=== PATIENT | male | born 1945 | race Caucasian/White ===

== ENCOUNTER 2022-04-24 06:04 | Inpatient (IN) ==
[2022-04-24 06:51] LABS: Basophils # (auto) 0.08 K/uL (0-0.2); Basophils % (auto) 0.7 %; Eosinophils # (auto) 0.01 K/uL (0-0.50); Eosinophils % (auto) 0.1 %; Hematocrit (blood only) 50.9 % (42.0-52.0); Hemoglobin 17.1 g/dl (14.0-18.0); Immature Granulocytes # (auto) 0.04 K/uL (0.01-0.20); Immature Granulocytes % (auto) 0.3 %; Lymphocytes # (auto) 1.59 K/uL (1.2-3.4); Lymphocytes % (auto) 13.6 %; Mean Corpuscular Hemoglobin 28.7 pg (25.0-34.0); Mean Corpuscular Hgb Conc 33.6 g/dL (32.0-36.0); Mean Corpuscular Volume 85.4 fL (80.0-100.0); Mean Platelet Volume 9.9 fL (9.4-12.4); Monocytes # (auto) 0.51 K/uL (0.11-0.59); Monocytes % (auto) 4.4 %; Neutrophils # (auto) 9.44 K/uL (1.40-6.50); Neutrophils % (auto) 80.9 %; Platelet Count 315 K/uL (130-400); RDW Coefficient of Variation 13.7 % (11.5-14.5); RDW Standard Deviation 42.4 fL (36.4-46.3); Red Blood Count 5.96 M/uL (4.70-6.10); White Blood Count 11.67 K/ul (4.8-10.8)
[2022-04-24 07:01] LABS: Albumin Globulin Ratio 1.2 (0.9-2); Albumin Level 4.2 gm/dl (3.4-5.0); Calcium 9.4 mg/dl (8.5-10.1); Creatinine Clr Calc Pharmacy 83.7 ml/min; Est GFR (African American) 84.4 ml/min; Est GFR (Non-African American) 72.8 ml/min; Globulin 3.6 gm/dl (2.5-4.0); Potassium 3.9 mmol/L (3.5-5.1); Total Protein 7.8 gm/dl (6.0-8.3)
[2022-04-24] MEDS ORDERED: FAMOTIDINE 20MG IV PUSH 20 MG/5 ML SYR IV STA (07:05)
[2022-04-24] MEDS ORDERED: ACETAMINOPHEN 1,000 MG/100 ML VIAL IV STA (07:05)
[2022-04-24] MEDS ORDERED: ONDANSETRON INJ 2 MG/ML 2 ML VIAL IV STA (07:05)
[2022-04-24] MEDS ORDERED: SODIUM CHLORIDE 0.9% 500 ML IV ONE (07:05)
[2022-04-24 07:08] LABS: Troponin I High Sensitivity 10.8 pg/ml (0-20)
--- NOTE | 2022-04-24 07:14 | XRay Report ---
XR chest 1V portable HISTORY: 76 years-old Male Chest pain, nonspecific acute right upper quadrant abdominal pain COMPARISON: None TECHNIQUE: AP view of the chest FINDINGS: Cardiac silhouette is upper limits of normal in size. No pneumothorax or overt pulmonary edema. Linea r left basilar opacities with small left pleural effusion. Bones appear grossly intact. IMPRESSION: Small left pleural effusion with mild left lung base opacities, favoring atelectasis. ACT 112: Negative or not required by law. The above report was generated using voice recognition software. It may contain grammatical, syntax o r spelling errors. Electronically signed by: Abdiaziz Carrasquillo M.D. 04/24/2022 7:13 AM
--- NOTE | 2022-04-24 07:37 | Emergency Department Note ---
Impression & Plan Acute epigastric pain, Cholelithiasis, Leukocytosis ED Provider Note NAME: PONCE CARRINGTON AGE: 76 SEX: M ARRIVES VIA: Walk-In INFORMANT: Patient ED PROVIDER(S): Rick Aguilar MD CHIEF COMPLAINT: Upper abdominal pain. PLAN: Disposition: admit MEDICAL DECISION MAKING: The patient is a pleasant 76-year-old gentleman with a past medical history who presents to the emergency department via walk-in accompanied by his son for evaluation of upper abdominal pain that radiates to his right shoulder. The patient reports a history of acid reflux but has never had a episode like this. He reports having ribs and scalloped potatoes yesterday for an early dinner and then had to redose in the evening. He reports his pain became severe at 11 PM last night and he has been unable to sleep due to the pain. He reports nausea but denies vomiting or diarrhea. He denies any fevers, cough, congestion. He did not take any medications for his pain. On arrival the patient is uncomfortable but no acute distress, afebrile with blood pressure 190/100s in the setting of his discomfort. He appears clinically dry. He has mild epigastric discomfort without discrete tenderness. There is a negative Don sign. EKG without overt acute ischemia. CXR negative for acute cardiopulmonary process. WBC 11.6K nonspecific. H/H and platelets within normal limits. Chemistry wit hout metabolic acidosis. Electrolytes and LFTs unremarkable. High-sensitivity troponin 10.8, within normal limits with delta 2-hour high-sensitivity troponin 9.7 essentially unchanged and within normal limits. Lipase within normal limits. Ultrasound of the gallbladder demonstrates gallstones with nonspecific gallbladder wall thickening without pericholecystic fluid or sonographic Dno sign. However, HIDA scan recommended to exclude cholecystitis if indicated. Upon reevaluation the patient reported some very brief improvement after IV fluid hydration, Pepcid, APAP, Zofran and Carafate. However he reports the pain recurred fairly quickly thereafter and is again a 10/10. He reports he is unable to function with this degree of pain as he cannot sleep. Given the persistence of his symptoms albeit with no significant tenderness we agreed to proceed with admission for further evaluation and HIDA scan given his ultrasound findings to evaluate for cholecystitis. Case was discussed with Zakiya Driscoll, [facility], with Dr. Melgar, [facility] hospitalist who will evaluate the patient for admission. Further management per admitting team Triage Nursing notes reviewed and agree them. Prior/outside medical records reviewed Vital Signs: reviewed Differential diagnosis: Cardiac ischemia, aortic dissection, pulmonary embolism, pneumothorax, pneumonia, pericarditis, myocarditis, esophageal rupture, GERD, cholecystitis, pancreatitis, musculoskeletal, as well as other pathologies. ER treatment provided: See below. Diagnostics interpreted by me: ECG: Normal sinus rhythm with sinus arrhythmia, 94 bpm, no ectopy, no overt ST e levation or depression, QTc 480, cures 88 Cardiac Monitoring: An order for continuous cardiac monitoring was placed and demonstrated Normal sinus rhythm with sinus arrhythmia, 94 bpm, no ectopy. Laboratory studies: See below Imaging studies: See below Consultation(s): Zakiya Driscoll, [facility], with Dr. Melgar HPI: The patient is a pleasant 76-year-old gentleman with a past medical history who presents to the emergency department via walk-in accompanied by his son for evaluation of upper abdominal pain that radiates to his right shoulder. The patient reports a history of acid reflux but has never had a episode like this. He reports having ribs and scalloped potatoes yesterday for an early dinner and then had to redose in the evening. He reports his pain became severe at 11 PM last night and he has been unable to sleep due to the pain. He reports nausea but denies vomiting or diarrhea. He denies any fevers, cough, congestion. He did not take any medications for his pain. ROS: See above HPI for pertinent positives & negatives. A total of 10 systems reviewed and were otherwise negative. VITALS:See Below PHYSICAL EXAMINATION: GENERAL: Awake, alert, uncomfortable-appearing, in no distress HENT: Normocephalic, atraumatic. Oropharynx with dry mucous membranes and ot herwise unremarkable. EYES: Normal conjunctiva. Sclera non-icteric. NECK: Supple. No nuchal rigidity. FROM. No JVD. RESPIRATORY: Clear to auscultation. CARDIAC: Regular rate, normal rhythm. Extremities warm and well perfused. Pulses equal. ABDOMEN: Soft, non-distended. Mild epigastric discomfort without discrete tenderness. Negative Don sign. No rebound or guarding. No masses. RECTAL: Deferred. MUSCULOSKELETAL: Chest examination reveals no tenderness. The back is symmetrical on inspection without obvious abnormality. There is no CVA tenderness to palpation. No joint edema. LOWER EXTREMITIES: Calves are equal size bilaterally and non-tender. No edema. No discoloration. NEURO: Normal sensorium. No sensory or motor deficits noted. SKIN: No rash or jaundice noted. Rick Aguilar MD Past Med/Surg History Medical History Diabetic neuropathy Duodenal ulcer per Epic chart but pt cannot recall Essential hypertension History of prostate cancer Treated surgically - no XRT or chemo Nephrolithiasis Type 2 diabetes mellitus Surgical History History of appendectomy History of cataract surgery History of robot-assisted laparoscopic radical prostatectomy History of tonsillectomy and adenoidectomy Hx of neck surgery related to an accident in a pool Family History Mother Heart disease Hypertension Social History Smoking Status: Former smoker Smoking End Date: >20 yrs ago; Hx Alcohol Use: Yes Alcohol type: beer Hx Substance Use: No Preferred Language: Latvian Delivery Rep Required: No Beliefs That Will Affect Care: None Current Living Situation: Spouse and Family Feels Safe at Home: Yes Assistive Devices: Denture - Upper and Denture - Lower Allergies Allergies Allergy/AdvReac Type Severity Reaction Status Date / Time unknown anesthetic agent AdvReac Nausea Uncoded 04/24/22 12:49 Home Meds Home Medications Medication Instructions Recorded Confirmed aspirin 81 mg tablet,delayed 162 mg PO DAILY 04/24/22 04/24/22 release lisinopril 10 1 tab PO DAILY 04/24/22 04/24/22 mg-hydrochlorothiazide 12.5 mg tablet metformin 500 mg tablet,extended 500 mg PO DAILY 04/24/22 04/24/22 release 24 hr metoprolol tartrate 50 mg tablet 50 mg PO BID 04/24/22 04/24/22 Results & Data (ED) Vital Signs Vital Signs - 24 hr 04/24/22 06:04 04/24/22 10:20 04/24/22 06:17 Temperature 36.6 C Temperature Source Oral Pulse Rate 93 H 89 93 H Pulse Rate from SpO2 Sensor 94 H Respiratory Rate 18 21 Respiratory Effort / Characteristics Non-Labored Respiratory Depth Normal Blood Pressure 198/101 H Blood Pressure Mean 133 Pulse Oximetry 95 94 Oxygen Delivery Method Room Air Sepsis Recent Fever Within 48 Hours No Sepsis New/Unexplained Change in Mental Status No Sepsis Action Taken by Nursing No Action Required 04/24/22 06:20 04/24/22 06:30 04/24/22 06:40 Temperature Temperature Source Pulse Rate 90 86 86 Pulse Rate from SpO2 Sensor 92 H 83 88 Respiratory Rate 23 19 16 Respiratory Effort / Characteristics Respiratory Depth Blood Pressure Blood Pressure Mean Pulse Oximetry 93 97 98 Oxygen Delivery Method Sepsis Recent Fever Within 48 Hours Sepsis New/Unexplained Change in Mental Status Sepsis Action Taken by Nursing 04/24/22 07:36 04/24/22 07:36 04/24/22 07:40 Temperature Temperature Source Pulse Rate 94 H 88 Pulse Rate from SpO2 Sensor Respiratory Rate 22 23 Respiratory Effort / Characteristics Respiratory Depth Blood Pressure 185/95 H Blood Pressure Mean 125 Pulse Oximetry Oxygen Delivery Method Sepsis Recent Fever Within 48 Hours Sepsis New/Unexplained Change in Mental Status Sepsis Action Taken by Nursing 04/24/22 07:50 04/24/22 08:00 04/24/22 08:10 Temperature Temperature Source Pulse Rate 94 H 82 91 H Pulse Rate from SpO2 Sensor Respiratory Rate 19 19 22 Respiratory Effort / Characteristics Respiratory Depth Blood Pressure Blood Pressure Mean Pulse Oximetry Oxygen Delivery Method Sepsis Recent Fever Within 48 Hours Sepsis New/Unexplained Change in Mental Status Sepsis Action Taken by Nursing 04/24/22 08:20 04/24/22 08:30 04/24/22 08:40 Temperature Temperature Source Pulse Rate 86 88 89 Pulse Rate from SpO2 Sensor Respiratory Rate 18 21 21 Respiratory Effort / Characteristics Respiratory Depth Blood Pressure Blood Pressure Mean Pulse Oximetry Oxygen Delivery Method Sepsis Recent Fever Within 48 Hours Sepsis New/Unexplained Change in Mental Status Sepsis Action Taken by Nursing 04/24/22 08:50 04/24/22 09:00 04/24/22 09:10 Temperature Temperature Source Pulse Rate 91 H 84 92 H Pulse Rate from SpO2 Sensor Respiratory Rate 23 12 Respiratory Effort / Characteristics Respiratory Depth Blood Pressure Blood Pressure Mean Pulse Oximetry Oxygen Delivery Method Sepsis Recent Fever Within 48 Hours Sepsis New/Unexplained Change in Mental Status Sepsis Action Taken by Nursing 04/24/22 09:20 04/24/22 09:30 04/24/22 09:40 Temperature Temperature Source Pulse Rate 87 86 85 Pulse Rate from SpO2 Sensor Respiratory Rate 14 14 16 Respiratory Effort / Characteristics Respiratory Depth Blood Pressure Blood Pressure Mean Pulse Oximetry Oxygen Delivery Method Sepsis Recent Fever Within 48 Hours Sepsis New/Unexplained Change in Mental Status Sepsis Action Taken by Nursing 04/24/22 09:50 04/24/22 10:00 04/24/22 10:10 Temperature Temperature Source Pulse Rate 87 87 92 H Pulse Rate from SpO2 Sensor Respiratory Rate 16 14 15 Respiratory Effort / Characteristics Respiratory Depth Blood Pressure Blood Pressure Mean Pulse Oximetry Oxygen Delivery Method Sepsis Recent Fever Within 48 Hours Sepsis New/Unexplained Change in Mental Status Sepsis Action Taken by Nursing 04/24/22 10:20 04/24/22 10:30 04/24/22 10:40 Temperature Temperature Source Pulse Rate 90 86 92 H Pulse Rate from SpO2 Sensor Respiratory Rate 21 20 30 H Respiratory Effort / Characteristics Respiratory Depth Blood Pressure Blood Pressure Mean Pulse Oximetry Oxygen Delivery Method Sepsis Recent Fever Within 48 Hours Sepsis New/Unexplained Change in Mental Status Sepsis Action Taken by Nursing 04/24/22 10:50 04/24/22 11:00 04/24/22 11:10 Temperature Temperature Source Pulse Rate 90 90 90 Pulse Rate from SpO2 Sensor Respiratory Rate 18 20 17 Respiratory Effort / Characteristics Respiratory Depth Blood Pressure Blood Pressure Mean Pulse Oximetry Oxygen Delivery Method Sepsis Recent Fever Within 48 Hours Sepsis New/Unexplained Change in Mental Status Sepsis Action Taken by Nursing 04/24/22 11:20 04/24/22 11:30 04/24/22 11:40 Temperature Temperature Source Pulse Rate 96 H 95 H 82 Pulse Rate from SpO2 Sensor Respiratory Rate 22 24 20 Respiratory Effort / Characteristics Respiratory Depth Blood Pressure Blood Pressure Mean Pulse Oximetry Oxygen Delivery Method Sepsis Recent Fever Within 48 Hours Sepsis New/Unexplained Change in Mental Status Sepsis Action Taken by Nursing 04/24/22 11:50 Temperature Temperature Source Pulse Rate 85 Pulse Rate from SpO2 Sensor Respiratory Rate 26 H Respiratory Effort / Characteristics Respiratory Depth Blood Pressure Blood Pressure Mean Pulse Oximetry Oxygen Delivery Method Sepsis Recent Fever Within 48 Hours Sepsis New/Unexplained Change in Mental Status Sepsis Action Taken by Nursing Laboratory Data 04/24/22 06:22 04/24/22 06:22 Lab Results 04/24/22 04/24/22 04/24/22 Range/Units 06:22 06:22 08:25 WBC 11.67 H (4.8-10.8) K/ul RBC 5.96 (4.70-6.10) M/uL Hgb 17.1 (14.0-18.0) g/dl Hct 50.9 (42.0-52.0) % MCV 85.4 (80.0-100.0) fL MCH 28.7 (25.0-34.0) pg MCHC 33.6 (32.0-36.0) g/dL RDW Std Deviation 42.4 (36.4-46.3) fL RDW Coeff of Maggie 13.7 (11.5-14.5) % Plt Count 315 (130-400) K/uL MPV 9.9 (9.4-12.4) fL Immature Gran % (Auto) 0.3 % Neut % (Auto) 80.9 % Lymph % (Auto) 13.6 % [place] % (Auto) 4.4 % Eos % (Auto) 0.1 % Baso % (Auto) 0.7 % Neut # (Auto) 9.44 H (1.40-6.50) K/uL Lymph # (Auto) 1.59 (1.2-3.4) K/uL [place] # (Auto) 0.51 (0.11-0.59) K/uL Eos # (Auto) 0.01 (0-0.50) K/uL Baso # (Auto) 0.08 (0-0.2) K/uL Immature Gran # (Auto) 0.04 (0.01-0.20) K/uL Sodium 138 (136-145) mmol/L Potassium 3.9 (3.5-5.1) mmol/L Chloride 98 (98-107) mmol/L Carbon Dioxide 31 (21-32) mmol/L Anion Gap 9 (3-11) BUN 20 (6-23) mg/dl Creatinine 1.00 (0.6-1.4) mg/dl Est Cr Clr Drug Dosing 83.7 ml/min Est GFR ( Amer) 84.4 ml/min Est GFR (Non-Af Amer) 72.8 ml/min BUN/Creatinine Ratio 20.0 (10-20) Glucose 160 H (70-99(Fasting)) mg/dl Calcium 9.4 (8.5-10.1) mg/dl Total Bilirubin 1.0 (0.2-1.0) mg/dl AST 29 (13-39) U/L ALT 24 (7-52) U/L Alkaline Phosphatase 88 (34-104) U/L Troponin I High Sens 10.8 9.7 (0-20) pg/ml Total Protein 7.8 (6.0-8.3) gm/dl Albumin 4.2 (3.4-5.0) gm/dl Globulin 3.6 (2.5-4.0) gm/dl Albumin/Globulin Ratio 1.2 (0.9-2) Lipase 18 (11-82) U/L SARS-CoV-2, RNA, NAAT (NEGATIVE) 04/24/22 Range/Units 11:35 WBC (4.8-10.8) K/ul RBC (4.70-6.10) M/uL Hgb (14.0-18.0) g/dl Hct (42.0-52.0) % MCV (80.0-100.0) fL MCH (25.0-34.0) pg MCHC (32.0-36.0) g/dL RDW Std Deviation (36.4-46.3) fL RDW Coeff of Maggie (11.5-14.5) % Plt Count (130-400) K/uL MPV (9.4-12.4) fL Immature Gran % (Auto) % Neut % (Auto) % Lymph % (Auto) % [place] % (Auto) % Eos % (Auto) % Baso % (Auto) % Neut # (Auto) (1.40-6.50) K/uL Lymph # (Auto) (1.2-3.4) K/uL [place] # (Auto) (0.11-0.59) K/uL Eos # (Auto) (0-0.50) K/uL Baso # (Auto) (0-0.2) K/uL Immature Gran # (Auto) (0.01-0.20) K/uL Sodium (136-145) mmol/L Potassium (3.5-5.1) mmol/L Chloride (98-107) mmol/L Carbon Dioxide (21-32) mmol/L Anion Gap (3-11) BUN (6-23) mg/dl Creatinine (0.6-1.4) mg/dl Est Cr Clr Drug Dosing ml/min Est GFR ( Amer) ml/min Est GFR (Non-Af Amer) ml/min BUN/Creatinine Ratio (10-20) Glucose (70-99(Fasting)) mg/dl Calcium (8.5-10.1) mg/dl Total Bilirubin (0.2-1.0) mg/dl AST (13-39) U/L ALT (7-52) U/L Alkaline Phosphatase (34-104) U/L Troponin I High Sens (0-20) pg/ml Total Protein (6.0-8.3) gm/dl Albumin (3.4-5.0) gm/dl Globulin (2.5-4.0) gm/dl Albumin/Globulin Ratio (0.9-2) Lipase (11-82) U/L SARS-CoV-2, RNA, NAAT NEGATIVE (NEGATIVE) Administered Medications Lisinopril/HCTZ (Lisinopril/Hctz 10/12.5mg Tab) 1 tab PO DAILY RHIANNA Stop: 05/24/22 11:59 Last Admin: 04/24/22 12:15 Dose: 1 tab Documented By: ABDIEL Sodium Chloride (Nss) 500 mls @ 100 mls/hr IV .Q5H RHIANNA Stop: 05/24/22 10:29 Last Admin: 04/24/22 16:33 Dose: 125 mls/hr Documented By: Infusion: 04/24/22 16:08 Dose: 0 mls/hr Documented By: Admin: 04/24/22 11:27 Dose: 125 mls/hr Documented By: ABDIEL Ciprofloxacin (Cipro / D5w) 400 mg in 200 mls @ 100 mls/hr IV Q12H RHIANNA; Pro tocol Stop: 05/04/22 15:29 Last Admin: 04/24/22 16:31 Dose: 100 mls/hr Documented By: LEVY Metronidazole (Flagyl) 500 mg in 100 mls @ 100 mls/hr IV Q8H RHIANNA Stop: 05/04/22 15:29 Last Infusion: 04/24/22 17:31 Dose: 0 mls/hr Documented By: Admin: 04/24/22 16:31 Dose: 100 mls/hr Documented By: LEVY Insulin Aspart (Insulin Aspart Per Unit) 0 units SC ACHS RHIANNA Stop: 05/24/22 16:29 Last Admin: 04/24/22 16:51 Dose: Not Given Documented By: LEVY Metoprolol Tartrate (Metoprolol Tartrate 50 Mg Tab) 50 mg PO BID RHIANNA Stop: 05/24/22 11:59 Last Admin: 04/24/22 12:15 Dose: 50 mg Documented By: ABDIEL Pantoprazole Sodium (Pantoprazole 40 Mg Tab) 40 mg PO BID RHIANNA Stop: 05/24/22 12:44 Last Admin: 04/24/22 13:18 Dose: 40 mg Documented By: ABDIEL Discontinued Medications Al Hydrox/Mg Hydrox/Simethicone (Gi Cocktail Ed Use) 1 dose PO ONE ONE Stop: 04/24/22 11:31 Last Admin: 04/24/22 11:30 Dose: 1 dose Documented By: ABDIEL Bupivacaine HCl/Epinephrine Bitart (Bupivacaine/Epinephrine 0.25% 1:200,000 30 Ml Vial) Confirm Administered Dose 30 ml .ROUTE .STK-MED ONE Stop: 04/24/22 16:39 Last Admin: 04/24/22 20:03 Dose: 30 ml Documented By: NAZ Sodium Chloride (Nss) 500 mls @ 999 mls/hr IV .Q31M ONE Stop: 04/24/22 07:35 Last Infusion: 04/24/22 08:12 Dose: 0 mls/hr Documented By: Admin: 04/24/22 07:37 Dose: 999 mls/hr Documented By: FLAQUITO Famotidine (Pepcid 20mg Iv Push) 20 mg in 5 mls @ 2.5 mls/min IV NOW STA Stop: 04/24/22 07:06 Last Admin: 04/24/22 07:39 Dose: 2.5 mls/min Documented By: FLAQUITO Acetaminophen (Ofirmev) 1,000 mg in 100 mls @ 400 mls/hr IV NOW STA Stop: 04/24/22 07:19 Last Infusion: 04/24/22 08:12 Dose: 0 mls/hr Documented By: Admin: 04/24/22 07:41 Dose: 400 mls/hr Documented By: FLAQUITO Ioversol (Optiray 350 100ml) 90 ml IV ONCE ONE Stop: 04/24/22 12:35 Last Admin: 04/24/22 12:34 Dose: 90 ml Documented By: JAR Miscellaneous ( Floseal Hemostatic Matrix 10ml) 10 ml TOP ONCE ONE Stop: 04/24/22 19:47 Last Admin: 04/24/22 19:53 Dose: 10 ml Documented By: NAZ Miscellaneous (Surgicel Absorb Hemostat 2in X 14in) 1 each TOP ONCE ONE Stop: 04/24/22 19:48 Last Admin: 04/24/22 19:51 Dose: 1 each Documented By: NAZ Morphine Sulfate (Morphine Sulfate 2 Mg/Ml Carp) 2 mg IV NOW STA Stop: 04/24/22 10:29 Last Admin: 04/24/22 11:27 Dose: 2 mg Documented By: [facility] Ondansetron HCl (Ondansetron Inj 2 Mg/Ml 2 Ml Vial) 4 mg IV NOW STA Stop: 04/24/22 07:06 Last Admin: 04/24/22 07:37 Dose: 4 mg Documented By: FLAQUITO Sucralfate (Sucralfate 1 Gm/10 Ml Udc) 1 gm PO NOW STA Stop: 04/24/22 08:25 Last Admin: 04/24/22 08:34 Dose: 1 gm Documented By: FLAQUITO Imaging Data Radiologist's Impression: Abdomen/Pelvis CT 04/24/22 11:22 CT OF THE ABDOMEN AND PELVIS WITH CONTRAST CLINICAL HISTORY: Epigastric/RUQ pain, nausea. COMPARISON STUDY: Right upper quadrant ultrasound performed earlier today. TECHNIQUE: Following IV administration of 90 mL of Optiray, axial images of the abdomen and pelvis were obtained from the lung bases to the proximal femurs. Images were reviewed in the axial, sagittal, and coronal planes. IV contrast was administered without complication. Automated exposure control was utilized for the study. A dose lowering technique was utilized adhering to the principles of ALARA. CT DOSE: 1732.60 mGy.cm FINDINGS: No pneumatosis, free air or portal gas is present. No hepatic lesions are present. There is possible hepatic steatosis. There is no biliary or pancreatic ductal dilatation. Moderate pericholecystic stranding is noted with trace associated fluid. Gallstones were noted on ultrasound performed earlier today. Gallbladder is slightly distended. Water attenuation bilateral renal lesions reflect cysts. There are are several right renal calculi which measure up to 5 mm. No ureteral calculi are present. There is no hydronephrosis. Colonic diverticulosis is present without evidence for acute diverticulitis. There is no evidence for a bowel obstruction. Appendix is not identified. There is no lymphadenopathy. There are no acute fractures or suspicious lesions within visualized skeletal structures. IMPRESSION: 1. Findings consistent with acute cholecystitis. 2. Colonic diverticulosis. No evidence for acute diverticulitis. 3. Right-sided nephrolithiasis. ACT 112: Negative or not required by law. Electronically signed by: Angel Colón M.D. 04/24/2022 1:09 PM Chest X-Ray 04/24/22 06:09 XR chest 1V portable HISTORY: 76 years-old Male Chest pain, nonspecific acute right upper quadrant abdominal pain COMPARISON: None TECHNIQUE: AP view of the chest FINDINGS: Cardiac silhouette is upper limits of normal in size. No pneumothorax or overt pulmonary edema. Linear left basilar opacities with small left pleural effusion. Bones appear grossly intact. IMPRESSION: Small left pleural effusion with mild left lung base opacities, favoring atelectasis. ACT 112: Negative or not required by law. The above report was generated using voice recognition software. It may contain grammatical, syntax or spelling errors. Electronically signed by: Abdiaziz Carrasquillo M.D. 04/24/2022 7:13 AM Gallbladder Ultrasound 04/24/22 06:21 ABDOMINAL ULTRASOUND, RIGHT UPPER QUADRANT HISTORY: Acute right upper quadrant abdominal pain ruq pain. COMPARISON: None. FINDINGS: With limited exam secondary to patient body habitus. Pancreas: The pancreas is mostly obscured by bowel gas. Liver: Increased echogenicity of the liver measuring up to 15.7 cm in length. Gallbladder: Layering cholelithiasis. Gallbladder wall is upper limits of normal at 3 mm. Possible adenomyomatosis of the gallbladder fundus. No pericholecystic fluid. Negative sonographic Don's sign. CBD: 0.5 cm Right kidney: 6 mm nonobstructing calculus of the superior pole right kidney. 5 cm cyst of the inferior pole right kidney. No hydronephrosis. IMPRESSION: 1. Cholelithiasis with mild nonspecific gallbladder wall thickening. No pericholecystic fluid identified and the sonographic Don sign was reported as negative. Correlation can be made with nuclear medicine hepatobiliary scan to exclude acute cholecystitis. 2. No biliary ductal dilation. 3. Right nephrolithiasis. ACT 112: Negative or not required by law. Electronically signed by: Abdiaziz Carrasquillo M.D. 04/24/2022 7:44 AM Abdomen/Pelvis CT 04/24/22 11:22 CT OF THE ABDOMEN AND PELVIS WITH CONTRAST CLINICAL HISTORY: Epigastric/RUQ pain, nausea. COMPARISON STUDY: Right upper quadrant ultrasound performed earlier today. TECHNIQUE: Following IV administration of 90 mL of Optiray, axial images of the abdomen and pelvis were obtained from the lung bases to the proximal femurs. Images were reviewed in the axial, sagittal, and coronal planes. IV contrast was administered without complication. Automated exposure control was utilized for the study. A dose lowering technique was utilized adhering to the principles of ALARA. CT DOSE: 1732.60 mGy.cm FINDINGS: No pneumatosis, free air or portal gas is present. No hepatic lesions are present. There is possible hepatic steatosis. There is no biliary or pancreatic ductal dilatation. Moderate pericholecystic stranding is noted with trace associated fluid. Gallstones were noted on ultrasound performed earlier today. Gallbladder is slightly distended. Water attenuation bilateral renal lesions reflect cysts. There are are several right renal calculi which measure up to 5 mm. No ureteral calculi are present. There is no hydronephrosis. Colonic diverticulosis is present without evidence for acute diverticulitis. There is no evidence for a bowel obstruction. Appendix is not identified. There is no lymphadenopathy. There are no acute fractures or suspicious lesions within visualized skeletal structures. IMPRESSION: 1. Findings consistent with acute cholecystitis. 2. Colonic diverticulosis. No evidence for acute diverticulitis. 3. Right-sided nephrolithiasis. ACT 112: Negative or not required by law. Electronically signed by: Angel Colón M.D. 04/24/2022 1:09 PM Discharge Plan Visit Data Chief Complaint: Chest Pain Stated Complaint: PAIN ACROSS CHEST ED Provider: Rick Aguilar Discharge Problem: Acute epigastric pain, Cholelithiasis, Leukocytosis Patient Disposition: Admitted As Inpatient Discharge Instructions Interventions: ED Discharge Assessment Last Done: 04/24/22 15:07 : Cholelithiasis Qualifiers: Cholelithiasis location: gallbladder Cholecystitis presence: with cholecystitis Cholecystitis acuity: acute Biliary obstruction: without biliary obstruction Qualified Code(s): K80.00 - Calculus of gallbladder with acute cholecystitis without obstruction
--- NOTE | 2022-04-24 07:46 | Ultrasound Report ---
ABDOMINAL ULTRASOUND, RIGHT UPPER QUADRANT HISTORY: Acute right upper quadrant abdominal pain ruq pain. COMPARISON: None. FINDINGS: With limited exam secondary to patient body habitus. Pancreas: The pancreas is mostly obscured by bowel gas. Liver: Increased echogenicity of the liver measuring up to 15.7 cm in length. Gallbladder: Layering cholelithiasis. Gallbladder wall is upper limits of normal at 3 mm. Possible ad enomyomatosis of the gallbladder fundus. No pericholecystic fluid. Negative sonographic Don's sign . CBD: 0.5 cm Right kidney: 6 mm nonobstructing calculus of the superior pole right kidney. 5 cm cyst of the inferi or pole right kidney. No hydronephrosis. IMPRESSION: 1. Cholelithiasis with mild nonspecific gallbladder wall thickening. No pericholecystic fluid identif ied and the sonographic Don sign was reported as negative. Correlation can be made with nuclear me dicine hepatobiliary scan to exclude acute cholecystitis. 2. No biliary ductal dilation. 3. Right nephrolithiasis. ACT 112: Negative or not required by law. Electronically signed by: Abdiaziz Carrasquillo M.D. 04/24/2022 7:44 AM
[2022-04-24] MEDS ORDERED: SUCRALFATE 1 GM/10 ML UDC PO STA (08:24)
[2022-04-24] MEDS ORDERED: MoRPHine SULFATE 2 MG/ML CARP IV STA (10:28)
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
[2022-04-24] MEDS ORDERED: ALUMINUM/MAGNESIUM SUSP 18 ML, LIDOCAINE VISCOUS 2% SOLN 6 ML, BARCODE IDENTIFIER 1 EACH PO ONE (11:22)
[2022-04-24] MEDS: SODIUM CHLORIDE 0.9% 500 ML IV SCH ×3 (11:27→22:17)
[2022-04-24] MEDS ORDERED: GI COCKTAIL ED USE PO ONE (11:30)
--- NOTE | 2022-04-24 12:13 | Communication Note ---
Date of Service: April 24, 2022 76-year-old man with history of hypertension and diabetes who presents with epigastric pain that started last night, severe, described as about to pop, not referred, associated with nausea. Denied any melena, hematochezia, fever, chills, diarrhea. Reports chronic urinary dribbling since his prostate cancer surgery. Exam notable for obese patient in no distress, epigastric tenderness. Labs is generally unremarkable. Abdominal ultrasound noted cholelithiasis and right nephrolithiasis. Epigastric pain. Reported mild improvement with sucralfate in ER. Outpatient records noted history of duodenal ulcer-though patient does not recall details. GI cocktail trial. PPI twice daily. Get the CT abdomen pelvis Other plans as detailed by Zakiya Driscoll
[2022-04-24] MEDS: METOPROLOL TARTRATE 50 MG TAB PO SCH ×2 (12:15→22:33)
[2022-04-24] MEDS: LISINOPRIL/HCTZ 10/12.5MG TAB PO SCH (12:15)
[2022-04-24] MEDS ORDERED: OPTIRAY 350 100ml IV ONE (12:34)
--- NOTE | 2022-04-24 13:11 | CT Scan Report ---
CT OF THE ABDOMEN AND PELVIS WITH CONTRAST CLINICAL HISTORY: Epigastric/RUQ pain, nausea. COMPARISON STUDY: Right upper quadrant ultrasound performed earlier today. TECHNIQUE: Following IV administration of 90 mL of Optiray, axial images of the abdomen and pelvis we re obtained from the lung bases to the proximal femurs. Images were reviewed in the axial, sagittal, and coronal planes. IV contrast was administered without complication. Automated exposure control wa s utilized for the study. A dose lowering technique was utilized adhering to the principles of ALARA . CT DOSE: 1732.60 mGy.cm FINDINGS: No pneumatosis, free air or portal gas is present. No hepatic lesions are present. There is possible hepatic steatosis. There is no biliary or pancreatic ductal dilatation. Moderate pericholec ystic stranding is noted with trace associated fluid. Gallstones were noted on ultrasound performed e arlier today. Gallbladder is slightly distended. Water attenuation bilateral renal lesions reflect cy sts. There are are several right renal calculi which measure up to 5 mm. No ureteral calculi are pres ent. There is no hydronephrosis. Colonic diverticulosis is present without evidence for acute diverti culitis. There is no evidence for a bowel obstruction. Appendix is not identified. There is no lympha denopathy. There are no acute fractures or suspicious lesions within visualized skeletal structures. IMPRESSION: 1. Findings consistent with acute cholecystitis. 2. Colonic diverticulosis. No evidence for acute diverticulitis. 3. Right-sided nephrolithiasis. ACT 112: Negative or not required by law. Electronically signed by: Angel Colón M.D. 04/24/2022 1:09 PM
[2022-04-24] MEDS: PANTOprazole 40 MG TAB PO SCH ×2 (13:18→22:33)
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
[2022-04-24] MEDS ORDERED: GLUCOSE 40% GEL 15 GM TUBE PO PRN (15:15)
[2022-04-24] MEDS ORDERED: CARBOHYDRATES FOR HYPOGLYCEMIA PO PRN (15:15)
[2022-04-24] MEDS ORDERED: GLUCAGON FOR INJ 1 MG VIAL SQ PRN (15:15)
[2022-04-24] MEDS ORDERED: DEXTROSE 50% 50 ML SYRINGE IV PRN (15:15)
[2022-04-24] MEDS ORDERED: GLUCOSE 10 TAB/TUBE PO PRN (15:15)
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
[2022-04-24] MEDS: metroNIDAZOLE 500 MG/100 ML BAG IV SCH ×2 (16:31→23:46)
[2022-04-24] MEDS: CIPROFLOXACIN / D5W 400 MG/200 ML BAG IV SCH (16:31)
[2022-04-24] MEDS ORDERED: BUPIVACAINE/EPINEPHRINE 0.25% 1:200,000 30 ML VIAL ONE (16:38)
[2022-04-24] MEDS ORDERED: GLYCOPYRROLATE 0.2 MG/ML VIAL ONE (16:40)
[2022-04-24] MEDS ORDERED: MIDAZOLAM HCL 1 MG/ML 2ML VIAL ONE (16:40)
[2022-04-24] MEDS ORDERED: NEOSTIGMINE METHYLSULFATE 1 MG/ML 10ML VIAL ONE (16:40)
[2022-04-24] MEDS ORDERED: fentaNYL citrate 100 MCG/2 ML VIAL ONE ×2 (16:40→19:39)
[2022-04-24] MEDS ORDERED: PROPOFOL IV EMULSION 10 MG/ML 20 ML VIAL IV ONE (16:40)
[2022-04-24] MEDS ORDERED: ONDANSETRON INJ 2 MG/ML 2 ML VIAL ONE ×2 (16:40→21:22)
[2022-04-24] MEDS ORDERED: DEXAMETHASONE SOD INJ 4 MG/ML VIAL ONE (16:40)
[2022-04-24] MEDS ORDERED: LIDOCAINE 2% MPF LOCAL 5 ML VIAL INFIL ONE (16:41)
[2022-04-24] MEDS ORDERED: ROCURONIUM BROMIDE 10 MG/ML 5 ML VIAL IV ONE ×2 (16:41→19:58)
[2022-04-24] MEDS: INSULIN ASPART PER UNIT SC SCH ×2 (16:51→22:35)
[2022-04-24] MEDS ORDERED: HYDROmorphone INJ 2 MG/ML SYR/VIAL IV PRN (17:31)
[2022-04-24] MEDS ORDERED: ONDANSETRON INJ 2 MG/ML 2 ML VIAL IV PRN (17:31)
[2022-04-24] MEDS ORDERED: ePHEDrine sulfate 50 MG/ML AMP IV PRN (17:31)
[2022-04-24] MEDS ORDERED: ATROPINE SULFATE 0.1 MG/ML 10ML SYR IV PRN (17:31)
[2022-04-24] MEDS ORDERED: fentaNYL citrate 100 MCG/2 ML VIAL IV PRN (17:31)
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
[2022-04-24] MEDS ORDERED: ALBUMIN HUMAN 5% 12.5 GM/250 ML VIAL IV ONE (18:48)
[2022-04-24] MEDS ORDERED: PHENYLEPHRINE HCL 10 MG/ML VIAL ONE (18:52)
[2022-04-24] MEDS ORDERED: ePHEDrine sulfate 50 MG/ML AMP ONE (18:54)
[2022-04-24] MEDS ORDERED: VASOPRESSIN 20 UNIT/ML VIAL ONE (18:54)
[2022-04-24] MEDS ORDERED: ACETAMINOPHEN 1000 MG/100 ML IV IV ONE (19:19)
[2022-04-24] MEDS ORDERED: FLOSEAL HEMOSTATIC MATRIX 10ML TOP ONE (19:46)
[2022-04-24] MEDS ORDERED: SURGICEL ABSORB HEMOSTAT 2IN X 14IN TOP ONE (19:47)
[2022-04-24] MEDS ORDERED: SUGAMMADEX SODIUM 200 MG/2 ML VIAL IV ONE ×3 (19:58→20:42)
--- NOTE | 2022-04-24 20:18 | Post Operative Brief Note ---
Immediate Post Op Note v1 Date of Surgery April 24, 2022 Pre & Post Diagnosis Operation Date: 04/24/22 12:00 Pre-Op Diagnosis: Acute cholecystitis Post-Op Diagnosis: Acute cholecystitis I identified the patient and participated in the time-out.: Yes Procedure Operation Date: 04/24/22 12:00 Actual Procedures p Laparoscopic Cholecystectomy(Not Applicable) - James Jamison MD Surgeon James Jamison MD It Portfolio Manager none Estimated Blood Loss 20 Findings Consistent with Post-Op Diagnosis Severe acute cholecystitis Drains Hemovac Drain (19fr)
--- NOTE | 2022-04-24 20:23 | Operative Report ---
Post Operative Report Pre & Post Diagnosis Operation Date: 04/24/22 12:00 Pre-Op Diagnosis: Acute cholecystitis Post-Op Diagnosis: Acute cholecystitis I identified the patient and participated in the time-out.: Yes Procedure Operation Date: 04/24/22 12:00 Actual Procedures p Laparoscopic Cholecystectomy(Not Applicable) - James Jamison MD Surgeon James Jamison MD Credit And Loan Collections Supervisor none Estimated Blood Loss 20 Findings Consistent with Post-Op Diagnosis Severe acute cholecystitis. Large number of stones in the gallbladder. Due to the severe acute cholecystitis as well as the patient's body habitus, the surgery took over twice as long as normal, warranting the 22 modifier to be used in this situation. Specimens Gallbladder Drains 19 Ukrainian round MACHELLE Anesthesia Type General Complications No immediate complications Description of Procedure The patient was taken to the operating room, and placed supine on the operating table. A timeout was performed, perioperative antibiotics were administered, SCD boots were placed. After adequate anesthesia and analgesia was obtained, the abdomen was prepped and draped in the normal sterile fashion. Local anesthetic was injected into and around the proposed incision sites. An incision was made with a 15 blade scalpel in the supraumbilical region and carried down to the level of the fascia. The fascia was grasped with a trach hook, and a varies needle was used to enter the abdominal cavity. The abdomen was insufflated to a pressure of 15 mmHg, and a 11 mm trocar was placed in this location. A 10 mm, 30 degree laparoscope was placed into the abdominal cavity, and the abdomen was surveyed. The omentum was firmly attached to the gallbladder and above the liver. Due to body habitus, it was incredibly difficult to retract the omentum. Two 5 mm trochars were placed along the right costal margin, and one 5 mm trocar was placed in the subxiphoid region under direct visualization. An extra 5 mm trocar was placed in the midline 40 retractor, and the subxiphoid port was ultimately upsized to an 11 mm trocar. The gallbladder was drained of bile with an 18-gauge aspiration needle. It was then grasped and retracted cephalad and laterally, and I began to slowly work down towards the triangle of Calot, dissecting with the hook cautery as well as the suction seismic computer tip. Down at the end of the gallbladder, it was noted that there was a large stone or stones stuck near the cystic duct. There was severe inflammation in this area, and the common bile duct could be seen coursing up to the gallbladder. It appeared that the cystic duct was incredibly short. The decision was made to proceed with a subtotal cholecystectomy. The harmonic scalpel was used to open the gallbladder just above the level of the cystic duct. Large number of stones were identified in this location were suctioned free. The cystic artery was identified and clipped. Using the harmonic scalpel I was able to remove the gallbladder from the gallbladder fossa. It was placed in an Endo Catch bag, and removed via the supraumbilical port site, which had to be significantly enlarged to allow passage of the gallbladder with all the stones. The stones that had been spilled were suctioned free. Attention was turned hemostasis, which was noted to be excellent. Surgicel and Floseal was used to aid with hemostasis on the liver bed. A 19 Ukrainian round MACHELLE drain was placed through the lateral incision and was maneuvered into the gallbladder fossa down by the area of the transected cystic duct/remnant rim of gallbladder. This was secured with a nylon suture. All trochars were removed under direct visualization. The abdomen was desufflated. The fascia in the 11 mm port site was closed with a 0 Vicryl suture. The skin was closed with a running 4-0 Monocryl subcuticular stitch. Dermabond was applied. The patient tolerated the procedure without complication, and was transferred in stable condition to the PACU. All instrument, needle, and sponge counts were correct at the end of the case. I attest to the content of the Intraoperative Record and any orders documented therein. Any exceptions are noted below.
--- NOTE | 2022-04-24 21:32 | Anesthesiology Progress Note ---
Date of Service April 24, 2022 Anesthesia Post Procedure Vital Signs Vital Signs: Temp Pulse Pulse Pulse Resp BP BP 04/24/22 21:30 36.6 C 84 24 147/67 H 04/24/22 21:20 36.6 C 86 24 135/86 04/24/22 21:10 36.6 C 88 25 H 146/72 H 04/24/22 21:00 90 22 145/68 H 04/24/22 20:50 90 24 150/70 H 04/24/22 20:40 37.2 C 96 H 12 152/93 H 04/24/22 16:53 37.4 C 94 H 20 161/94 H 04/24/22 15:56 36.8 C 88 160/85 H 04/24/22 15:44 04/24/22 14:40 26 H 04/24/22 14:30 18 04/24/22 14:20 82 16 04/24/22 14:10 83 30 H 04/24/22 14:00 85 19 04/24/22 13:50 85 17 04/24/22 13:40 83 20 04/24/22 13:30 84 19 04/24/22 13:20 83 18 04/24/22 13:10 82 25 H 04/24/22 13:00 92 H 15 04/24/22 12:50 88 12 04/24/22 12:40 87 13 04/24/22 12:35 100 H 9 L 04/24/22 12:20 80 21 04/24/22 12:10 82 14 04/24/22 12:00 84 18 04/24/22 11:50 85 26 H 04/24/22 11:40 82 20 04/24/22 11:30 95 H 24 04/24/22 11:20 96 H 22 04/24/22 11:10 90 17 04/24/22 11:00 90 20 04/24/22 10:50 90 18 04/24/22 10:40 92 H 30 H 04/24/22 10:30 86 20 04/24/22 10:20 90 21 04/24/22 10:10 92 H 15 04/24/22 10:00 87 14 04/24/22 09:50 87 16 04/24/22 09:40 85 16 04/24/22 09:30 86 14 04/24/22 09:20 87 14 02/13/23 09:10 92 H 12 04/24/22 09:00 84 04/24/22 08:50 91 H 23 04/24/22 08:40 89 21 04/24/22 08:30 88 21 04/24/22 08:20 86 18 04/24/22 08:10 91 H 22 04/24/22 08:00 82 19 04/24/22 07:50 94 H 19 04/24/22 07:40 88 23 04/24/22 07:36 94 H 22 04/24/22 07:36 185/95 H 04/24/22 06:40 86 16 04/24/22 06:30 86 19 04/24/22 06:20 90 23 04/24/22 06:17 93 H 21 04/24/22 10:20 89 04/24/22 06:04 36.6 C 93 H 18 198/101 H Pulse Ox O2 Del Method O2 Flow Rate 04/24/22 21:30 94 Oxymask 5 04/24/22 21:20 93 Oxymask 5 04/24/22 21:10 95 Oxymask 5 04/24/22 21:00 92 Oxymask 10 04/24/22 20:50 92 Oxymask 10 04/24/22 20:40 95 Oxymask 10 04/24/22 16:53 100 Room Air 04/24/22 15:56 95 Nasal Cannula 2 04/24/22 15:44 Nasal Cannula 2 04/24/22 14:40 04/24/22 14:30 04/24/22 14:20 04/24/22 14:10 04/24/22 14:00 04/24/22 13:50 04/24/22 13:40 04/24/22 13:30 04/24/22 13:20 04/24/22 13:10 04/24/22 13:00 04/24/22 12:50 04/24/22 12:40 04/24/22 12:35 04/24/22 12:20 04/24/22 12:10 04/24/22 12:00 04/24/22 11:50 04/24/22 11:40 04/24/22 11:30 04/24/22 11:20 04/24/22 11:10 04/24/22 11:00 04/24/22 10:50 04/24/22 10:40 04/24/22 10:30 04/24/22 10:20 04/24/22 10:10 04/24/22 10:00 04/24/22 09:50 04/24/22 09:40 04/24/22 09:30 04/24/22 09:20 04/24/22 09:10 04/24/22 09:00 04/24/22 08:50 04/24/22 08:40 04/24/22 08:30 04/24/22 08:20 04/24/22 08:10 04/24/22 08:00 04/24/22 07:50 04/24/22 07:40 04/24/22 07:36 04/24/22 07:36 04/24/22 06:40 98 04/24/22 06:30 97 04/24/22 06:20 93 04/24/22 06:17 94 04/24/22 10:20 04/24/22 06:04 95 Room Air Pain Intensity Abdomen: Pain Intensity: 8 Transfer of Care Handoff Completed per policy Notes Mental Status: alert / awake / arousable and participated in evaluation Patient Amnestic to Procedure: Yes Nausea / Vomiting: adequately controlled Pain: adequately controlled Airway Patency, RR, SpO2: stable & adequate BP & HR: stable & adequate Hydration State: stable & adequate Anesthetic Complications: no major complications apparent and Pt Satisfied with anesthetic care
[2022-04-24] MEDS ORDERED: diphenhydrAMINE Capsule 25 MG CAP PO PRN (21:59)
[2022-04-24] MEDS ORDERED: MoRPHine SULFATE 2 MG/ML CARP IV PRN (21:59)
[2022-04-24] MEDS ORDERED: PROMETHAZINE HCL 12.5 MG in SODIUM CHLORIDE 0.9% 50 ML IV PRN (21:59)
[2022-04-24] MEDS ORDERED: oxyCODONE/ACETAMINOPHEN 5mg/325mg TAB PO PRN (21:59)
[2022-04-25] MEDS ORDERED: Nursing to Pharmacy Communication SCH (00:15)
[2022-04-25] MEDS: SODIUM CHLORIDE 0.9% 500 ML IV SCH (00:29)
[2022-04-25] MEDS: CIPROFLOXACIN / D5W 400 MG/200 ML BAG IV SCH ×2 (04:00→14:24)
[2022-04-25] MEDS: SODIUM CHLORIDE 0.9% 1000ML 1,000 ML IV SCH ×2 (04:56→15:02)
--- NOTE | 2022-04-25 06:03 | Electrocardiogram Report ---
Test Reason : Blood Pressure : / mmHG Vent. Rate : 094 BPM Atrial Rate : 094 BPM P-R Int : 192 ms QRS Dur : 088 ms QT Int : 384 ms P-R-T Axes : 065 063 073 degrees QTc Int : 480 ms Normal sinus rhythm Premature atrial complexes Possible Left atrial enlargement Low voltage QRS Prolonged QT Abnormal ECG No previous ECGs available Confirmed by Eldon Good ([id number]) on 04/25/2022 6:02:49 AM Referred By: Confirmed By:Eldon Good
[2022-04-25] MEDS: metroNIDAZOLE 500 MG/100 ML BAG IV SCH ×3 (07:24→23:43)
--- NOTE | 2022-04-25 07:32 | Gastroenterology Progress Note ---
Date of Service April 25, 2022 Assessment & Plan (1) Acute epigastric pain: Plan: Nearly resolved w cholecystectomy. No clinical evidence of ulcer dx (No gastric/duodenal abnormalities on CT, normal Hb/Hct and pt's pain significantly improved w cholecystectomy) Plan Offered and encouraged an OP EGD/Colonoscopy - declines. Diet, activity per surgery. Please consider laxatives as pt is a little bloated , not passing gas, so likely a mild ileus. GI will sign off. Please recall if needed. Admission and Anticipated Discharge Date Admission Date: April 24, 2022 Subjective 76, male presented yesterday for epigastric pain, imaging consistent w cholecystitis w/o evidence of bile duct abnormalities. LFTs normal. Pt underwent cholecystectomy yesterday and tells me he feels much better. Sitting on the side of the bed. A little bloating, not passing gas or BMs yet, minimal pain. Reports hx of duodenal ulcer, but also tells me he never underwent EGD, colonoscopy and does not want to do these. Review of Systems Review of Systems: ROS: Gen: Denies weakness, fevers, weight loss Eyes: No eye redness, or pain, no recent vision changes Resp: No SOB, no cough Cardio: No palpitations/irregular beats, no chest pain GI: As per HPI : Denies pain on urination Skin: No jaundice, itching or new rashes Physical Exam Constitutional: WD/WN, vitals as above Eyes: PERRL, conjunctivae normal, anicteric sclerae ENMT: external ear and nose normal, oropharynx normal Respiratory: normal respiratory effort, lungs clear to auscultation Cardiovascular: RRR, no murmur, no edema Gastrointestinal (Abdomen): Moderate distention, not taunt, mild diffuse discomfort on palpation mostly near the lap incisions (dressings in place, dry). Skin: no rashes, warm and dry Neurologic: PERRL, EOMI, accommodation nl, no face palsy, no dysarthria Psychiatric: A+Ox3, euthymic affect Lymphatic: no cervical or axillary lymphadenopathy Results & Data ([facility]) Vital Signs (Past 12 Hours) Vital Signs Temp Pulse Pulse Resp BP Pulse Ox O2 Del Method 04/25/22 07:04 71 23 115/67 94 Nasal Cannula 04/25/22 03:05 36.4 C L 75 18 119/70 96 Nasal Cannula 04/24/22 22:09 78 04/24/22 23:48 36.6 C 80 16 141/75 H 97 Oxymask 04/24/22 23:09 Oxymask 04/24/22 22:30 36.6 C 80 16 95/66 L 97 Oxymask 04/24/22 22:04 36.2 C L 80 18 130/63 94 Oxymask 04/24/22 21:40 84 25 H 134/66 95 Oxymask 04/24/22 21:30 36.6 C 84 24 147/67 H 94 Oxymask 04/24/22 21:20 36.6 C 86 24 135/86 93 Oxymask 04/24/22 21:10 36.6 C 88 25 H 146/72 H 95 Oxymask 04/24/22 21:00 90 22 145/68 H 92 Oxymask 04/24/22 20:50 90 24 150/70 H 92 Oxymask 04/24/22 20:40 37.2 C 96 H 12 152/93 H 95 Oxymask O2 Flow Rate 04/25/22 07:04 2 04/25/22 03:05 3 04/24/22 22:09 04/24/22 23:48 4 04/24/22 23:09 4 04/24/22 22:30 4 04/24/22 22:04 4 04/24/22 21:40 5 04/24/22 21:30 5 04/24/22 21:20 5 04/24/22 21:10 5 04/24/22 21:00 10 04/24/22 20:50 10 04/24/22 20:40 10 Laboratory Results LFTs, lipase yesterday normal. WBC yesterday 11. BS this morning 120. Diagnostic Findings Imaging (prior to surgery): CTAP 04/24: 1. Findings consistent with acute cholecystitis. 2. Colonic diverticulosis. No evidence for acute diverticulitis. 3. Right-sided nephrolithiasis. US 04/24/22: 1. Cholelithiasis with mild nonspecific gallbladder wall thickening. No pericholecystic fluid identified and the sonographic Don sign was reported as negative. Correlation can be made with nuclear medicine hepatobiliary scan to exclude acute cholecystitis. 2. No biliary ductal dilation. 3. Right nephrolithiasis.
[2022-04-25] MEDS: METOPROLOL TARTRATE 50 MG TAB PO SCH ×2 (08:11→21:01)
[2022-04-25] MEDS: PANTOprazole 40 MG TAB PO SCH ×2 (08:11→20:56)
[2022-04-25] MEDS: FAMOTIDINE 40 MG TABLET PO SCH (08:11)
[2022-04-25] MEDS: LISINOPRIL/HCTZ 10/12.5MG TAB PO SCH (08:12)
[2022-04-25] MEDS: INSULIN ASPART PER UNIT SC SCH ×4 (08:18→20:55)
[2022-04-25 09:21] LABS: Estimated Average Glucose 146 mg/dl; Hemoglobin A1C 6.7 % (4.5-5.6)
[2022-04-25 09:51] LABS: Albumin Globulin Ratio 1.3 (0.9-2); Albumin Level 3.4 gm/dl (3.4-5.0); BUN Creatinine Ratio 16.3 (10-20); Bilirubin,Total 1.2 mg/dl (0.2-1.0); Calcium 8.1 mg/dl (8.5-10.1); Creatinine Clr Calc Pharmacy 80.7 ml/min; Est GFR (African American) 80.5 ml/min; Est GFR (Non-African American) 69.4 ml/min; Globulin 2.7 gm/dl (2.5-4.0); Potassium 3.8 mmol/L (3.5-5.1); Total Protein 6.1 gm/dl (6.0-8.3)
[2022-04-25 10:14] LABS: Basophils # (auto) 0.05 K/uL (0-0.2); Basophils % (auto) 0.5 %; Eosinophils # (auto) 0.03 K/uL (0-0.50); Eosinophils % (auto) 0.3 %; Hematocrit (blood only) 41.7 % (42.0-52.0); Hemoglobin 13.9 g/dl (14.0-18.0); Immature Granulocytes # (auto) 0.03 K/uL (0.01-0.20); Immature Granulocytes % (auto) 0.3 %; Lymphocytes # (auto) 1.19 K/uL (1.2-3.4); Lymphocytes % (auto) 11.1 %; Mean Corpuscular Hemoglobin 29.2 pg (25.0-34.0); Mean Corpuscular Hgb Conc 33.3 g/dL (32.0-36.0); Mean Corpuscular Volume 87.6 fL (80.0-100.0); Monocytes # (auto) 0.91 K/uL (0.11-0.59); Monocytes % (auto) 8.5 %; Neutrophils # (auto) 8.53 K/uL (1.40-6.50); Neutrophils % (auto) 79.3 %; Platelet Count 227 K/uL (130-400); RDW Coefficient of Variation 14.3 % (11.5-14.5); RDW Standard Deviation 45.6 fL (36.4-46.3); Red Blood Count 4.76 M/uL (4.70-6.10); White Blood Count 10.74 K/ul (4.8-10.8)
--- NOTE | 2022-04-25 10:52 | Communication Note ---
Date of Service: April 25, 2022 We were asked to provide ERCP to prevent a bile leak on this pt who underwent a cholecystectomy yesterday. Discussed w Dr. Askew, Dr. Jamison, Dr. Winchester. Plan for ERCP tomorrow by Dr. Winchester around 3:15. Order for ERCP placed. OR and Endo aware. NPO after midnight. Today's diet per surgery.
[2022-04-25] MEDS ORDERED: ACETAMINOPHEN 1,000 MG/100 ML VIAL IV SCH (12:00)
[2022-04-25] MEDS ORDERED: oxyCODONE HCL IR 5 MG TAB (IMMEDIATE RELEASE) PO PRN (12:03)
--- NOTE | 2022-04-25 12:04 | Surgery Progress Note ---
Date of Service April 25, 2022 Assessment & Plan (1) Acute cholecystitis: Plan: POD # 1 s/p laparoscopic subtotal fenestrated cholecystectomy -afebrile, vss - moderate postop pain, at times controlled - kacy drain with bloody output - t. bili 1.2 - lethargic and sleepy today Plan: Will schedule IV Tylenol q 8 hours. Continue PO Oxycodone and IV morhpine prn pain Continue clear liquid diet for now continue kacy drain to bulb suction GI planning for ERCP with stent placement tomorrow NPO after midnight Continue IV Abx OOB to chair, ambulate with assistance PT/OT SCDs and lovenox for dvt prophylaxis repeat am labs continue medical management Discussed with Dr. glass who agrees with above. Admission and Anticipated Discharge Date Admission Date: April 24, 2022 Subjective feeling very tired, cannot get comfortable no chest pain or shortness of breath abdomen feels very bloated not passing any gas moderate to severe pain at times, sometimes controlled other times not. More pain with movement no n,v Physical Exam Constitutional: WD/WN, vitals as above cooperative and + lethargic; no acute distress and not ill appearing Neck: normal visual inspection and trachea midline Respiratory: normal respiratory effort; no respiratory distress, no labored breathing and no retractions oxygen via nasal cannula Gastrointestinal (Abdomen): Inspection/Auscultation: + abdomen distended, + abdominal surgical incision (clean/dry/intact with dermabond), + abdominal surgical drain present (bloody output) and + hypoactive bowel sounds; + abnormal bowel sounds Percussion/Palpation: + abdomen tender (generalized tenderness) and abdomen soft; no guarding and abdomen not rigid Skin: no rashes, warm and dry no jaundice Psychiatric: Orientation: alert and oriented x 3 Results & Data ([facility]) Vital Signs (Past 12 Hours) Vital Signs Temp Pulse Pulse Resp BP Pulse Ox O2 Del Method 04/25/22 11:34 36.7 C 72 18 116/71 95 Nasal Cannula 04/25/22 07:30 72 04/25/22 07:30 Nasal Cannula 04/25/22 07:04 71 23 115/67 94 Nasal Cannula 04/25/22 03:05 36.4 C L 75 18 119/70 96 Nasal Cannula O2 Flow Rate 04/25/22 11:34 1 04/25/22 07:30 04/25/22 07:30 2 04/25/22 07:04 2 04/25/22 03:05 3 Laboratory Results 04/25/22 04/25/22 04/25/22 Range/Units 11:07 09:07 09:07 WBC 10.74 (4.8-10.8) K/ul RBC 4.76 (4.70-6.10) M/uL Hgb 13.9 L D (14.0-18.0) g/dl Hct 41.7 L (42.0-52.0) % MCV 87.6 (80.0-100.0) fL MCH 29.2 (25.0-34.0) pg MCHC 33.3 (32.0-36.0) g/dL RDW Std Deviation 45.6 (36.4-46.3) fL RDW Coeff of Maggie 14.3 (11.5-14.5) % Plt Count 227 (130-400) K/uL MPV 10.0 (9.4-12.4) fL Immature Gran % (Auto) 0.3 % Neut % (Auto) 79.3 % Lymph % (Auto) 11.1 % Florence % (Auto) 8.5 % Eos % (Auto) 0.3 % Baso % (Auto) 0.5 % Neut # (Auto) 8.53 H (1.40-6.50) K/uL Lymph # (Auto) 1.19 L (1.2-3.4) K/uL Florence # (Auto) 0.91 H (0.11-0.59) K/uL Eos # (Auto) 0.03 (0-0.50) K/uL Baso # (Auto) 0.05 (0-0.2) K/uL Immature Gran # (Auto) 0.03 (0.01-0.20) K/uL Sodium 137 (136-145) mmol/L Potassium 3.8 (3.5-5.1) mmol/L Chloride 101 (98-107) mmol/L Carbon Dioxide 32 (21-32) mmol/L Anion Gap 4 (3-11) BUN 17 (6-23) mg/dl Creatinine 1.04 (0.6-1.4) mg/dl Est Cr Clr Drug Dosing 80.7 ml/min Est GFR ( Amer) 80.5 ml/min Est GFR (Non-Af Amer) 69.4 ml/min BUN/Creatinine Ratio 16.3 (10-20) Glucose 130 H (70-99(Fasting)) mg/dl POC Glucose 113 H (70-99) mg/dl Estimat Average Glucose mg/dl Hemoglobin A1c (4.5-5.6) % Calcium 8.1 L (8.5-10.1) mg/dl Total Bilirubin 1.2 H (0.2-1.0) mg/dl AST 57 H (13-39) U/L ALT 31 (7-52) U/L Alkaline Phosphatase 57 (34-104) U/L Troponin I High Sens (0-20) pg/ml Total Protein 6.1 D (6.0-8.3) gm/dl Albumin 3.4 (3.4-5.0) gm/dl Globulin 2.7 (2.5-4.0) gm/dl Albumin/Globulin Ratio 1.3 (0.9-2) 04/25/22 04/24/22 04/24/22 Range/Units 06:56 22:20 20:46 WBC (4.8-10.8) K/ul RBC (4.70-6.10) M/uL Hgb (14.0-18.0) g/dl Hct (42.0-52.0) % MCV (80.0-100.0) fL MCH (25.0-34.0) pg MCHC (32.0-36.0) g/dL RDW Std Deviation (36.4-46.3) fL RDW Coeff of Maggie (11.5-14.5) % Plt Count (130-400) K/uL MPV (9.4-12.4) fL Immature Gran % (Auto) % Neut % (Auto) % Lymph % (Auto) % Florence % (Auto) % Eos % (Auto) % Baso % (Auto) % Neut # (Auto) (1.40-6.50) K/uL Lymph # (Auto) (1.2-3.4) K/uL Florence # (Auto) (0.11-0.59) K/uL Eos # (Auto) (0-0.50) K/uL Baso # (Auto) (0-0.2) K/uL Immature Gran # (Auto) (0.01-0.20) K/uL Sodium (136-145) mmol/L Potassium (3.5-5.1) mmol/L Chloride (98-107) mmol/L Carbon Dioxide (21-32) mmol/L Anion Gap (3-11) BUN (6-23) mg/dl Creatinine (0.6-1.4) mg/dl Est Cr Clr Drug Dosing ml/min Est GFR ( Amer) ml/min Est GFR (Non-Af Amer) ml/min BUN/Creatinine Ratio (10-20) Glucose (70-99(Fasting)) mg/dl POC Glucose 120 H 203 H 160 H (70-99) mg/dl Estimat Average Glucose mg/dl Hemoglobin A1c (4.5-5.6) % Calcium (8.5-10.1) mg/dl Total Bilirubin (0.2-1.0) mg/dl AST (13-39) U/L ALT (7-52) U/L Alkaline Phosphatase (34-104) U/L Troponin I High Sens (0-20) pg/ml Total Protein (6.0-8.3) gm/dl Albumin (3.4-5.0) gm/dl Globulin (2.5-4.0) gm/dl Albumin/Globulin Ratio (0.9-2) 04/24/22 04/24/22 04/24/22 Range/Units 16:51 12:59 06:22 WBC (4.8-10.8) K/ul RBC (4.70-6.10) M/uL Hgb (14.0-18.0) g/dl Hct (42.0-52.0) % MCV (80.0-100.0) fL MCH (25.0-34.0) pg MCHC (32.0-36.0) g/dL RDW Std Deviation (36.4-46.3) fL RDW Coeff of Maggie (11.5-14.5) % Plt Count (130-400) K/uL MPV (9.4-12.4) fL Immature Gran % (Auto) % Neut % (Auto) % Lymph % (Auto) % Florence % (Auto) % Eos % (Auto) % Baso % (Auto) % Neut # (Auto) (1.40-6.50) K/uL Lymph # (Auto) (1.2-3.4) K/uL Florence # (Auto) (0.11-0.59) K/uL Eos # (Auto) (0-0.50) K/uL Baso # (Auto) (0-0.2) K/uL Immature Gran # (Auto) (0.01-0.20) K/uL Sodium (136-145) mmol/L Potassium (3.5-5.1) mmol/L Chloride (98-107) mmol/L Carbon Dioxide (21-32) mmol/L Anion Gap (3-11) BUN (6-23) mg/dl Creatinine (0.6-1.4) mg/dl Est Cr Clr Drug Dosing ml/min Est GFR ( Amer) ml/min Est GFR (Non-Af Amer) ml/min BUN/Creatinine Ratio (10-20) Glucose (70-99(Fasting)) mg/dl POC Glucose 130 H (70-99) mg/dl Estimat Average Glucose 146 mg/dl Hemoglobin A1c 6.7 H (4.5-5.6) % Calcium (8.5-10.1) mg/dl Total Bilirubin (0.2-1.0) mg/dl AST (13-39) U/L ALT (7-52) U/L Alkaline Phosphatase (34-104) U/L Troponin I High Sens 10.9 (0-20) pg/ml Total Protein (6.0-8.3) gm/dl Albumin (3.4-5.0) gm/dl Globulin (2.5-4.0) gm/dl Albumin/Globulin Ratio (0.9-2)
--- NOTE | 2022-04-25 13:09 | Hospitalist Progress Note ---
Date of Service April 25, 2022 Assessment & Plan (1) Acute cholecystitis: Plan: POD #1 s/p lap dajuan. Post op pain, cont Tylenol, added Tramadol. Additional narcotics as needed Cont wound and drain management per surgery. ERCP planned for am to prevent a bile leak Cont cipro/flagyl (2) Cholelithiasis: (3) Type 2 diabetes mellitus: Plan: A1C is 6.7 reflecting good control. Cont holding metformin and giving novolog with correction factor and carb coverage. With light coverage needed, will hold on glargine at this time. (4) Essential hypertension: Plan: chronic, controlled. Cont Lis/HCTZ per home regimen. (5) Nephrolithiasis: Plan: present on imaging with no evidence of ureteral calculi. DVT proph: SCDs/ambulation-held in setting of upcoming procedure tomorrow. DNR/DNI Dispo-PCU, transition to med/sug. [facility] and Anticipated Discharge Date Admission Date: April 24, 2022 Subjective 76 yo M with acute epigastric pain x 1-2 days Admitted for acute cholecystitis s/p lap dajuan on 04/25, POD 1 Reports some ongoing discomfort in his epigatric region. Tramadol added to Tylenol. Tolerating clear liquids and no other concerns at this time. Planned for ERCP in am. Review of Systems Review of Systems: All systems were reviewed and negative except as indicated on subjective above. Physical Exam Physical Exam: CONSTITUTIONAL: obese, vitals as above, generally well-appearing, NAD EYES: normal conjunctivae, no scleral icterus ENT: external ear and nose normal, oral mucosa moist. NECK: trachea midline RESPIRATORY: clear to auscultation bilaterally, no crackles, rales or wheezes, normal respiratory effort CARDIOVASCULAR: regular rate and rhythm, S1 and 2 heard without murmurs, gallops or rubs, no JVD, no peripheral edema, CHEST: inspection of chest was normal GASTROINTESTINAL: soft, nontender, ND, multiple laparoscopic sites are healing well and closed, +MACHELLE drain in place with serosanguineous fluid present, no guarding MUSCULOSKELETAL: generalized weakness, head is normocephalic and atraumatic SKIN: warm and dry NEUROLOGIC: CN 2-12 grossly intact, no sensory deficit, normal cognition, normal speech, no tremor PSYCHIATRIC: alert cooperative and oriented to person, place and time. Euthymic mood, makes good eye contact, language grossly intact, recent and remote memory grossly intact. Results & Data Results & Data ([facility]) Vital Signs (Past 12 Hours) Vital Signs Temp Pulse Pulse Resp BP Pulse Ox O2 Del Method 04/25/22 11:34 36.7 C 72 18 116/71 95 Nasal Cannula 04/25/22 07:30 72 04/25/22 07:30 Nasal Cannula 04/25/22 07:04 71 23 115/67 94 Nasal Cannula 04/25/22 03:05 36.4 C L 75 18 119/70 96 Nasal Cannula O2 Flow Rate 04/25/22 11:34 1 04/25/22 07:30 04/25/22 07:30 2 04/25/22 07:04 2 04/25/22 03:05 3 Laboratory Results Short CBC 04/25/22 Range/Units 09:07 WBC 10.74 (4.8-10.8) K/ul Hgb 13.9 L D (14.0-18.0) g/dl Hct 41.7 L (42.0-52.0) % Plt Count 227 (130-400) K/uL BMP 04/25/22 09:07 Sodium 137 Potassium 3.8 Chloride 101 Carbon Dioxide 32 BUN 17 Creatinine 1.04 Glucose 130 H Calcium 8.1 L Liver Function 04/25/22 Range/Units 09:07 Total Bilirubin 1.2 H (0.2-1.0) mg/dl AST 57 H (13-39) U/L ALT 31 (7-52) U/L Alkaline Phosphatase 57 (34-104) U/L Albumin 3.4 (3.4-5.0) gm/dl Medications Administered Current Inpatient Medications Dextrose (Dextrose 50% 50 Ml Syringe) 25 - 50 ml IV UD PRN; Protocol PRN Reason: Hypoglycemia Protocol Stop: 05/24/22 15:14 Diphenhydramine HCl (Diphenhydramine Capsule 25 Mg Cap) 25 mg PO Q4H PRN PRN Reason: hives, itching or insomnia Stop: 05/24/22 21:58 Famotidine (Famotidine 40 Mg Tablet) 40 mg PO QAM [facility] Stop: 05/25/22 08:59 Last Admin: 04/25/22 08:11 Dose: 40 mg Glucagon (Glucagon For Inj 1 Mg Vial) 1 mg SQ UD PRN; Protocol PRN Reason: Hypoglycemia Protocol Stop: 05/24/22 15:14 Glucose (Glucose 40% Gel 15 Gm Tube) 15 - 30 gm PO UD PRN; Protocol PRN Reason: Hypoglycemia Protocol Stop: 05/24/22 15:14 Glucose (Glucose 10 Tab/Tube) 4 - 8 tab PO UD PRN; Protocol PRN Reason: Hypoglycemia Treatment Stop: 05/24/22 15:14 Lisinopril/HCTZ (Lisinopril/Hctz 10/12.5mg Tab) 1 tab PO DAILY RHIANNA Stop: 05/24/22 11:59 Last Admin: 04/25/22 08:12 Dose: 1 tab Ciprofloxacin (Cipro / D5w) 400 mg in 200 mls @ 100 mls/hr IV Q12H [facility]; Protocol Stop: 05/04/22 15:29 Last Infusion: 04/25/22 06:00 Dose: Infused Metronidazole (Flagyl) 500 mg in 100 mls @ 100 mls/hr IV Q8H [facility] Stop: 05/04/22 15:29 Last Infusion: 04/25/22 08:26 Dose: Infused Promethazine HCl 12.5 mg/ (Sodium Chloride) 50.5 mls @ 204 mls/hr IV Q6H PRN PRN Reason: Nausea And Vomiting Stop: 05/24/22 21:58 Sodium Chloride (Nss 1000ml) 1,000 mls @ 100 mls/hr IV .Q10H [facility] Stop: 05/25/22 02:59 Last Admin: 04/25/22 04:56 Dose: 100 mls/hr Acetaminophen (Ofirmev) 1,000 mg in 100 mls @ 400 mls/hr IV Q8H [facility] Stop: 04/28/22 11:59 Last Infusion: 04/25/22 12:41 Dose: Infused Insulin Aspart (Insulin Aspart Per Unit) 0 units SC ACHS [facility] Stop: 05/24/22 16:29 Last Admin: 04/25/22 11:55 Dose: 3 units Metoprolol Tartrate (Metoprolol Tartrate 50 Mg Tab) 50 mg PO BID [facility] Stop: 05/24/22 11:59 Last Admin: 04/25/22 08:11 Dose: 50 mg Miscellaneous (Carbohydrates For Hypoglycemia ) 15 - 30 gm PO UD PRN PRN Reason: Hypoglycemia Protocol Stop: 05/24/22 15:14 Morphine Sulfate (Morphine Sulfate 2 Mg/Ml Carp) 2 mg IV Q3H PRN PRN Reason: Pain (1,2,3,4,5) & Pre PT Stop: 05/08/22 21:58 Ondansetron HCl (Ondansetron Inj 2 Mg/Ml 2 Ml Vial) 4 mg IV Q4H PRN PRN Reason: Nausea And Vomiting Stop: 05/24/22 21:58 Oxycodone HCl (Oxycodone Hcl Ir 5 Mg Tab (Immediate Release)) 10 mg PO Q4H PRN PRN Reason: severe pain Stop: 05/09/22 12:02 Pantoprazole Sodium (Pantoprazole 40 Mg Tab) 40 mg PO BID RHIANNA Stop: 05/24/22 12:44 Last Admin: 04/25/22 08:11 Dose: 40 mg (2) Cholelithiasis Biliary obstruction: without biliary obstruction Cholecystitis acuity: acute Cholecystitis presence: with cholecystitis Cholelithiasis location: gallbladder Qualified Code(s): K80.00 - Calculus of gallbladder with acute cholecystitis without obstruction
[2022-04-25] MEDS ORDERED: traMADol HCL 50 MG TABLET PO PRN (13:19)
[2022-04-25] MEDS ORDERED: traMADol HCL 50 MG TABLET PO STA (13:19)
[2022-04-25] MEDS: ONDANSETRON INJ 2 MG/ML 2 ML VIAL IV PRN ×2 (19:30→23:42)
[2022-04-25] MEDS: ACETAMINOPHEN 500 MG TAB PO SCH (20:55)
[2022-04-26] MEDS: CIPROFLOXACIN / D5W 400 MG/200 ML BAG IV SCH ×3 (03:12→20:17)
[2022-04-26] MEDS: ACETAMINOPHEN 500 MG TAB PO SCH ×3 (05:33→20:23)
[2022-04-26] MEDS: PANTOprazole 40 MG TAB PO SCH ×2 (08:12→20:24)
[2022-04-26] MEDS: METOPROLOL TARTRATE 50 MG TAB PO SCH ×2 (08:12→20:24)
[2022-04-26] MEDS: metroNIDAZOLE 500 MG/100 ML BAG IV SCH ×2 (08:12→18:24)
[2022-04-26] MEDS: LISINOPRIL/HCTZ 10/12.5MG TAB PO SCH (08:12)
[2022-04-26] MEDS: FAMOTIDINE 40 MG TABLET PO SCH (08:12)
[2022-04-26 08:18] LABS: Hematocrit (blood only) 42.3 % (42.0-52.0); Hemoglobin 13.8 g/dl (14.0-18.0); Mean Corpuscular Hemoglobin 28.9 pg (25.0-34.0); Mean Corpuscular Hgb Conc 32.6 g/dL (32.0-36.0); Mean Corpuscular Volume 88.5 fL (80.0-100.0); Mean Platelet Volume 10.2 fL (9.4-12.4); Platelet Count 233 K/uL (130-400); RDW Coefficient of Variation 14.2 % (11.5-14.5); RDW Standard Deviation 45.8 fL (36.4-46.3); Red Blood Count 4.78 M/uL (4.70-6.10); White Blood Count 9.91 K/ul (4.8-10.8)
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
[2022-04-26 08:50] LABS: BUN Creatinine Ratio 17.1 (10-20); Calcium 8.6 mg/dl (8.5-10.1); Creatinine Clr Calc Pharmacy 75.6 ml/min; Est GFR (African American) 74.4 ml/min; Est GFR (Non-African American) 64.2 ml/min; Potassium 3.9 mmol/L (3.5-5.1)
[2022-04-26] MEDS: INSULIN ASPART PER UNIT SC SCH ×4 (09:07→21:52)
--- NOTE | 2022-04-26 09:14 | Surgery Progress Note ---
Date of Service April 26, 2022 Assessment & Plan (1) Acute cholecystitis: Plan: POD # 2 s/p laparoscopic subtotal fenestrated cholecystectomy -afebrile, vss - postop pain controlled - kacy drain with serosanguineous output - tJill bili 1.2 stable Plan: Continue pain management NPO for ERCP and stent placement today continue kacy drain to bulb suction Continue IV Abx OOB to chair, ambulate with assistance PT/OT SCDs for dvt prophylaxis repeat am labs continue medical management Dr. Jamison has seen and examined pt agrees with above. Admission and Anticipated Discharge Date Admission Date: April 25, 2022 Subjective feeling better today, pain is better controlled tolerated clear liquids yesterday no n,v no chest pain or shortness of breath npo for ERCP today passing flatus Physical Exam Constitutional: + obese, cooperative and comfortable; no acute distress Respiratory: normal respiratory effort; no labored breathing and no retractions Gastrointestinal (Abdomen): Inspection/Auscultation: abdomen normal to inspection, normal bowel sounds, + abdominal surgical incision (clean/dry/intact with dermabond) and + abdominal surgical drain present (serosanguineous today); abdomen not distended Percussion/Palpation: + abdomen tender (at incision sites) and abdomen soft; no guarding, abdomen not rigid and abdomen not firm Skin: no rashes, warm and dry Psychiatric: A+Ox3, euthymic affect Results & Data ([facility]) Vital Signs (Past 12 Hours) Vital Signs Temp Pulse Resp BP Pulse Ox O2 Del Method O2 Flow Rate 04/26/22 07:13 36.7 C 85 18 159/76 H 92 Nasal Cannula 1 04/25/22 22:38 Nasal Cannula 1 04/25/22 22:34 36.4 C L 62 18 158/83 H 94 Nasal Cannula 1 Laboratory Results 04/26/22 04/26/22 04/26/22 Range/Units 09:06 07:43 07:43 WBC 9.91 (4.8-10.8) K/ul RBC 4.78 (4.70-6.10) M/uL Hgb 13.8 L (14.0-18.0) g/dl Hct 42.3 (42.0-52.0) % MCV 88.5 (80.0-100.0) fL MCH 28.9 (25.0-34.0) pg MCHC 32.6 (32.0-36.0) g/dL RDW Std Deviation 45.8 (36.4-46.3) fL RDW Coeff of Maggie 14.2 (11.5-14.5) % Plt Count 233 (130-400) K/uL MPV 10.2 (9.4-12.4) fL Immature Gran % (Auto) % Neut % (Auto) % Lymph % (Auto) % Mercer % (Auto) % Eos % (Auto) % Baso % (Auto) % Neut # (Auto) (1.40-6.50) K/uL Lymph # (Auto) (1.2-3.4) K/uL Mercer # (Auto) (0.11-0.59) K/uL Eos # (Auto) (0-0.50) K/uL Baso # (Auto) (0-0.2) K/uL Immature Gran # (Auto) (0.01-0.20) K/uL Sodium 137 (136-145) mmol/L Potassium 3.9 (3.5-5.1) mmol/L Chloride 100 (98-107) mmol/L Carbon Dioxide 34 H (21-32) mmol/L Anion Gap 3 (3-11) BUN 19 (6-23) mg/dl Creatinine 1.11 (0.6-1.4) mg/dl Est Cr Clr Drug Dosing 75.6 ml/min Est GFR ( Amer) 74.4 ml/min Est GFR (Non-Af Amer) 64.2 ml/min BUN/Creatinine Ratio 17.1 (10-20) Glucose 129 H (70-99(Fasting)) mg/dl POC Glucose 121 H (70-99) mg/dl Estimat Average Glucose mg/dl Hemoglobin A1c (4.5-5.6) % Calcium 8.6 (8.5-10.1) mg/dl Total Bilirubin (0.2-1.0) mg/dl AST (13-39) U/L ALT (7-52) U/L Alkaline Phosphatase (34-104) U/L Total Protein (6.0-8.3) gm/dl Albumin (3.4-5.0) gm/dl Globulin (2.5-4.0) gm/dl Albumin/Globulin Ratio (0.9-2) 04/25/22 04/25/22 04/25/22 Range/Units 19:55 16:13 11:07 WBC (4.8-10.8) K/ul RBC (4.70-6.10) M/uL Hgb (14.0-18.0) g/dl Hct (42.0-52.0) % MCV (80.0-100.0) fL MCH (25.0-34.0) pg MCHC (32.0-36.0) g/dL RDW Std Deviation (36.4-46.3) fL RDW Coeff of Maggie (11.5-14.5) % Plt Count (130-400) K/uL MPV (9.4-12.4) fL Immature Gran % (Auto) % Neut % (Auto) % Lymph % (Auto) % Mercer % (Auto) % Eos % (Auto) % Baso % (Auto) % Neut # (Auto) (1.40-6.50) K/uL Lymph # (Auto) (1.2-3.4) K/uL Mercer # (Auto) (0.11-0.59) K/uL Eos # (Auto) (0-0.50) K/uL Baso # (Auto) (0-0.2) K/uL Immature Gran # (Auto) (0.01-0.20) K/uL Sodium (136-145) mmol/L Potassium (3.5-5.1) mmol/L Chloride (98-107) mmol/L Carbon Dioxide (21-32) mmol/L Anion Gap (3-11) BUN (6-23) mg/dl Creatinine (0.6-1.4) mg/dl Est Cr Clr Drug Dosing ml/min Est GFR ( Amer) ml/min Est GFR (Non-Af Amer) ml/min BUN/Creatinine Ratio (10-20) Glucose (70-99(Fasting)) mg/dl POC Glucose 103 H 103 H 113 H (70-99) mg/dl Estimat Average Glucose mg/dl Hemoglobin A1c (4.5-5.6) % Calcium (8.5-10.1) mg/dl Total Bilirubin (0.2-1.0) mg/dl AST (13-39) U/L ALT (7-52) U/L Alkaline Phosphatase (34-104) U/L Total Protein (6.0-8.3) gm/dl Albumin (3.4-5.0) gm/dl Globulin (2.5-4.0) gm/dl Albumin/Globulin Ratio (0.9-2) 04/25/22 04/25/22 04/24/22 Range/Units 09:07 09:07 06:22 WBC 10.74 (4.8-10.8) K/ul RBC 4.76 (4.70-6.10) M/uL Hgb 13.9 L D (14.0-18.0) g/dl Hct 41.7 L (42.0-52.0) % MCV 87.6 (80.0-100.0) fL MCH 29.2 (25.0-34.0) pg MCHC 33.3 (32.0-36.0) g/dL RDW Std Deviation 45.6 (36.4-46.3) fL RDW Coeff of Maggie 14.3 (11.5-14.5) % Plt Count 227 (130-400) K/uL MPV 10.0 (9.4-12.4) fL Immature Gran % (Auto) 0.3 % Neut % (Auto) 79.3 % Lymph % (Auto) 11.1 % Mercer % (Auto) 8.5 % Eos % (Auto) 0.3 % Baso % (Auto) 0.5 % Neut # (Auto) 8.53 H (1.40-6.50) K/uL Lymph # (Auto) 1.19 L (1.2-3.4) K/uL Mercer # (Auto) 0.91 H (0.11-0.59) K/uL Eos # (Auto) 0.03 (0-0.50) K/uL Baso # (Auto) 0.05 (0-0.2) K/uL Immature Gran # (Auto) 0.03 (0.01-0.20) K/uL Sodium 137 (136-145) mmol/L Potassium 3.8 (3.5-5.1) mmol/L Chloride 101 (98-107) mmol/L Carbon Dioxide 32 (21-32) mmol/L Anion Gap 4 (3-11) BUN 17 (6-23) mg/dl Creatinine 1.04 (0.6-1.4) mg/dl Est Cr Clr Drug Dosing 80.7 ml/min Est GFR ( Amer) 80.5 ml/min Est GFR (Non-Af Amer) 69.4 ml/min BUN/Creatinine Ratio 16.3 (10-20) Glucose 130 H (70-99(Fasting)) mg/dl POC Glucose (70-99) mg/dl Estimat Average Glucose 146 mg/dl Hemoglobin A1c 6.7 H (4.5-5.6) % Calcium 8.1 L (8.5-10.1) mg/dl Total Bilirubin 1.2 H (0.2-1.0) mg/dl AST 57 H (13-39) U/L ALT 31 (7-52) U/L Alkaline Phosphatase 57 (34-104) U/L Total Protein 6.1 D (6.0-8.3) gm/dl Albumin 3.4 (3.4-5.0) gm/dl Globulin 2.7 (2.5-4.0) gm/dl Albumin/Globulin Ratio 1.3 (0.9-2)
[2022-04-26 09:37] LABS: INR 1.3 (0.9-1.1); Prothrombin Time 13.3 Seconds (9.0-12.0)
[2022-04-26] MEDS ORDERED: ATROPINE SULFATE 0.1 MG/ML 10ML SYR IV PRN (15:16)
[2022-04-26] MEDS ORDERED: fentaNYL citrate 100 MCG/2 ML VIAL IV PRN (15:16)
[2022-04-26] MEDS ORDERED: ONDANSETRON INJ 2 MG/ML 2 ML VIAL IV PRN (15:16)
[2022-04-26] MEDS ORDERED: ePHEDrine sulfate 50 MG/ML AMP IV PRN (15:16)
[2022-04-26] MEDS ORDERED: fentaNYL citrate 100 MCG/2 ML VIAL ONE (15:25)
[2022-04-26] MEDS ORDERED: PROPOFOL IV EMULSION 10 MG/ML 20 ML VIAL IV ONE (15:26)
[2022-04-26] MEDS ORDERED: ROCURONIUM BROMIDE 10 MG/ML 5 ML VIAL IV ONE ×5 (15:29)
[2022-04-26] MEDS ORDERED: ONDANSETRON INJ 2 MG/ML 2 ML VIAL ONE (15:29)
[2022-04-26] MEDS ORDERED: LIDOCAINE 2% MPF LOCAL 5 ML VIAL INFIL ONE (15:29)
[2022-04-26] MEDS ORDERED: DEXAMETHASONE SOD INJ 4 MG/ML VIAL ONE (15:29)
[2022-04-26] MEDS ORDERED: SUGAMMADEX SODIUM 200 MG/2 ML VIAL IV ONE (15:31)
--- NOTE | 2022-04-26 16:25 | History & Physical Bridge Note ---
Date of Service April 26, 2022 History & Physical Bridge Note I have examined the patient, reviewed the History & Physical and in the interval since the performance of the History & Physical I have noted the following changes of clinical significance: no changes noted ERCP Patient was explained in detail regarding risks, benefits, limitations and alternatives of the above endoscopic procedure. Risks of intravenous sedation used for procedure were also explained. Risks include, but not limited to perforation, bleeding, infection, respiratory distress, cardiac arrest and . Patient is also aware about the possibility of missed lesion. Patient's questions were answered. The patient verbalized understanding the information and agreed to undergo the procedure.
[2022-04-26] MEDS ORDERED: INDOMETHACIN 50 MG SUPP PR ONE (16:29)
--- NOTE | 2022-04-26 16:55 | Operative Report ---
Post Operative Report Pre & Post Diagnosis Operation Date: 04/24/22 12:00 Pre-Op Diagnosis: Acute cholecystitis Post-Op Diagnosis: Acute cholecystitis Operation Date: 04/26/22 07:00 <No data on this case meets the specified criteria> I identified the patient and participated in the time-out.: Yes Procedure Operation Date: 04/24/22 12:00 Actual Procedures p Laparoscopic Cholecystectomy(Not Applicable) - James Jamison MD Operation Date: 04/26/22 07:00 <No data on this case meets the specified criteria> Surgeon Chuy Winchester MD Gl[facility] Wedger none Estimated Blood Loss 20 Findings See Below (Biliary stent placed. No clear leak seen. ) Specimens None Description of Procedure ERCP I attest to the content of the Intraoperative Record and any orders documented therein. Any exceptions are noted below.
--- NOTE | 2022-04-26 17:06 | Fluoroscopy Report ---
FL ERCP biliary ductal CLINICAL HISTORY: ADD ON ERCP IN OR TECHNIQUE: 8 views were obtained with the C-arm in the OR with the above procedure. Total fluoroscopy time was 67.0 seconds. Radiation dose was 64.29 mGy. Comparison: None available at the time of this dictation. FINDINGS/IMPRESSION: Intraoperative images were obtained of ERCP. Please correlate with intraoperative fluoroscopy and operative report. ACT 112: Negative or not required by law. Electronically signed by: Jesus Kumar M.D. 04/26/2022 5:05 PM
--- NOTE | 2022-04-26 17:13 | GI REPORT ---
Patient Name: Roberto Mujica Procedure Date: 04/26/2022 4:24 PM Date of : 1945 Admit Type: Inpatient Age: 76 Gender: Male Attending MD: Chuy Winchester MD, Procedure: ERCP Providers: Chuy Winchester MD Referring MD: James Hernandez Indications: Suspected bile leak Medicines: General Anesthesia Complications: No immediate complications. Estimated Blood Loss: Estimated blood loss: none. Procedure: Pre-Anesthesia Assessment: - Prior to the procedure, a History and Physical was performed, and patient medications, allergies and sensitivities were reviewed. The patient's tolerance of previous anesthesia was reviewed. - The risks and benefits of the procedure and the sedation options and risks were discussed with the patient. All questions were answered and informed consent was obtained. - Patient identification and proposed procedure were verified prior to the procedure by the physician and the nurse. The procedure was verified in the procedure room. - Pre-procedure physical examination revealed no contraindications to sedation. After obtaining informed consent, the scope was passed under direct vision. Throughout the procedure, the patient's blood pressure, pulse, and oxygen saturations were monitored continuously. The Duodenoscope was introduced through the mouth, and advanced to the duodenum and used to inject contrast into the bile duct. The ERCP was accomplished without difficulty. The patient tolerated the procedure well. Findings: A manager of global film of the abdomen was obtained. Surgical clips, consistent with a previous cholecystectomy, were seen in the area of the right upper quadrant of the abdomen. The esophagus was successfully intubated under direct vision. The scope was advanced to a normal major papilla in the descending duodenum without detailed examination of the pharynx, larynx and associated structures, and upper GI tract. The upper GI tract was grossly normal. A 0.025 inch x 270 cm angled Visiglide wire was passed into the biliary tree. The CleverOpalt distal wire sphincterotome was passed over the guidewire and the bile duct was then deeply cannulated. Contrast was injected. I personally interpreted the bile duct images. Ductal flow of contrast was adequate. Image quality was adequate. Contrast extended to the main bile duct. Opacification of the entire biliary tree except for the gallbladder was successful. The maximum diameter of the ducts was 8 mm. Biliary sphincterotomy was made with a monofilament traction (standard) sphincterotome using ERBE electrocautery. There was no post-sphincterotomy bleeding. The biliary tree was swept with an 11.5 mm balloon starting at the bifurcation. Nothing was found. One 10 Fr by 9 cm plastic biliary stent with a single external flap and a single internal flap was placed into the common bile duct. Bile flowed through the stent. The stent was in good position. Indomethacin 100 mg was given via suppository to decrease the risk of post-ERCP pancreatitis (PEP). Impression: - No clear bile leakage seen however the cystic duct was occluded. - A biliary sphincterotomy was performed. - One plastic biliary stent was placed into the common bile duct in view of high risk of delayed leak. Recommendation: - [facility]. - Repeat ERCP in 2 months to remove stent. Chuy Winchester MD 04/26/2022 5:12:50 PM This report has been signed electronically. Note Initiated On: 04/26/2022 4:24 PM Number of Addenda: 0 I attest to the content of the Intraoperative Record and orders documented therein, exceptions below {[id number]}
[2022-04-26] MEDS ORDERED: ALBUT/IPRATROP 3MG/0.5MG NEB 3 ML VIAL ONE (17:18)
--- NOTE | 2022-04-26 17:53 | Hospitalist Progress Note ---
Date of Service April 26, 2022 Assessment & Plan (1) Acute cholecystitis: Plan: POD #1 s/p lap dajuan. Post op pain, cont Tylenol, added Tramadol. Additional narcotics as needed Cont wound and drain management per surgery. ERCP planned for am to prevent a bile leak Cont cipro/flagyl Clinically much better Will have ERCP today and likely discharge tomorrow (2) Cholelithiasis: Plan: ERCP today with possible stent placement (3) Type 2 diabetes mellitus: Plan: A1C is 6.7 reflecting good control. Cont holding metformin and giving novolog with correction factor and carb coverage. With light coverage needed, will hold on glargine at this time. (4) Essential hypertension: Plan: chronic, controlled. Cont Lis/HCTZ per home regimen. Blood pressure remains on the upper side at 169/84 We will monitor (5) Nephrolithiasis: Plan: present on imaging with no evidence of ureteral calculi. DVT proph: SCDs/ambulation-held in setting of upcoming procedure tomorrow. DNR/DNI Dispo-PCU, transition to med/sug. Admission and Anticipated Discharge Date Admission Date: April 25, 2022 Subjective 04/26/2022 The patient was seen and examined in medical floor He is a status post cholecystectomy and awaiting ERCP today Clinically much better and denies any significant symptoms Review of Systems Review of Systems: All systems reviewed and are unremarkable except as noted below Physical Exam Physical Exam: Lying in bed comfortably Constitutional: well developed, well nourished, + ill appearing and + obese Eyes: PERRL, conjunctivae normal, anicteric sclerae ENMT: external ear and nose normal, oropharynx normal Neck: trachea midline, no thyromegaly Respiratory: no respiratory distress Auscultation: lungs clear to auscultation bilaterally Cardiovascular: Rate/Rhythm: regular rate and regular rhythm; not tachycardic Heart Sounds: normal S1 and normal S2; no murmur Extremities: + edema (Trace edema bilaterally) Gastrointestinal (Abdomen): Inspection/Auscultation: + abdomen distended and normal bowel sounds Percussion/Palpation: + abdomen tender (Tender all over without any rebound) and abdomen soft Musculoskeletal: No acute arthritis involving any joint Neurologic: normal touch/pain/proprioception and moves all extremities; no focal motor deficits Psychiatric: A+Ox3, euthymic affect Lymphatic: no cervical or axillary lymphadenopathy Results & Data Results & Data ([facility]) Vital Signs (Past 12 Hours) Vital Signs Temp Pulse Pulse Resp BP Pulse Ox O2 Del Method 04/26/22 17:45 92 H 23 169/84 H 94 Nasal Cannula 04/26/22 17:35 93 H 24 170/89 H 93 Nasal Cannula 04/26/22 17:25 96 H 22 166/92 H 97 Nebulizer 04/26/22 17:18 37.0 C 98 H 20 174/86 H 95 Oxymask 04/26/22 14:47 36.7 C 84 22 185/91 H 95 Nasal Cannula 04/26/22 08:12 Nasal Cannula 04/26/22 07:13 36.7 C 85 18 159/76 H 92 Nasal Cannula O2 Flow Rate 04/26/22 17:45 2 04/26/22 17:35 2 04/26/22 17:25 15 04/26/22 17:18 8 04/26/22 14:47 1 04/26/22 08:12 04/26/22 07:13 1 Laboratory Results Short CBC 04/26/22 Range/Units 07:43 WBC 9.91 (4.8-10.8) K/ul Hgb 13.8 L (14.0-18.0) g/dl Hct 42.3 (42.0-52.0) % Plt Count 233 (130-400) K/uL BMP 04/26/22 07:43 Sodium 137 Potassium 3.9 Chloride 100 Carbon Dioxide 34 H BUN 19 Creatinine 1.11 Glucose 129 H Calcium 8.6 Medications Administered Current Inpatient Medications Acetaminophen (Acetaminophen 500 Mg Tab) 1,000 mg PO Q8H RHIANNA Stop: 05/25/22 20:59 Last Admin: 04/26/22 12:30 Dose: Not Given Albuterol (Albut/Ipratrop 3mg/0.5mg Neb 3 Ml Vial) 3 ml NEB Q4R RHIANNA; Protocol Stop: 05/26/22 18:59 Atropine Sulfate (Atropine Sulfate 0.1 Mg/Ml 10ml Syr) 0.5 mg IV Q1M PRN PRN Reason: PACU Use-HR<40 &/or Bradycardi Stop: 04/26/22 23:17 Dextrose (Dextrose 50% 50 Ml Syringe) 25 - 50 ml IV UD PRN; Protocol PRN Reason: Hypoglycemia Protocol Stop: 05/24/22 15:14 Diphenhydramine HCl (Diphenhydramine Capsule 25 Mg Cap) 25 mg PO Q4H PRN PRN Reason: hives, itching or insomnia Stop: 05/24/22 21:58 Ephedrine Sulfate (Ephedrine Sulfate 50 Mg/Ml Amp) 5 mg IV Q5M PRN PRN Reason: PACU Use Only-SBP<90 mmHg Stop: 04/26/22 23:17 Famotidine (Famotidine 40 Mg Tablet) 40 mg PO QAM RHIANNA Stop: 05/25/22 08:59 Last Admin: 04/26/22 08:12 Dose: 40 mg Fentanyl Citrate (Fentanyl Citrate 100 Mcg/2 Ml Vial) 25 mcg IV Q5M PRN PRN Reason: PACU Use Only-Pain Stop: 04/26/22 23:17 Glucagon (Glucagon For Inj 1 Mg Vial) 1 mg SQ UD PRN; Protocol PRN Reason: Hypoglycemia Protocol Stop: 05/24/22 15:14 Glucose (Glucose 40% Gel 15 Gm Tube) 15 - 30 gm PO UD PRN; Protocol PRN Reason: Hypoglycemia Protocol Stop: 05/24/22 15:14 Glucose (Glucose 10 Tab/Tube) 4 - 8 tab PO UD PRN; Protocol PRN Reason: Hypoglycemia Treatment Stop: 05/24/22 15:14 Lisinopril/HCTZ (Lisinopril/Hctz 10/12.5mg Tab) 1 tab PO DAILY REPLACED BY [facility] Stop: 05/24/22 11:59 Last Admin: 04/26/22 08:12 Dose: 1 tab Ciprofloxacin (Cipro / D5w) 400 mg in 200 mls @ 100 mls/hr IV Q12H RHIANNA; Protocol Stop: 05/04/22 15:29 Last Infusion: 04/26/22 05:12 Dose: Infused Metronidazole (Flagyl) 500 mg in 100 mls @ 100 mls/hr IV Q8H RHIANNA Stop: 05/04/22 15:29 Last Infusion: 04/26/22 09:20 Dose: Infused Promethazine HCl 12.5 mg/ (Sodium Chloride) 50.5 mls @ 204 mls/hr IV Q6H PRN PRN Reason: Nausea And Vomiting Stop: 05/24/22 21:58 Insulin Aspart (Insulin Aspart Per Unit) 0 units SC ACHS REPLACED BY [facility] Stop: 05/24/22 16:29 Last Admin: 04/26/22 12:28 Dose: Not Given Metoprolol Tartrate (Metoprolol Tartrate 50 Mg Tab) 50 mg PO BID REPLACED BY [facility] Stop: 05/24/22 11:59 Last Admin: 04/26/22 08:12 Dose: 50 mg Miscellaneous (Carbohydrates For Hypoglycemia ) 15 - 30 gm PO UD PRN PRN Reason: Hypoglycemia Protocol Stop: 05/24/22 15:14 Ondansetron HCl (Ondansetron Inj 2 Mg/Ml 2 Ml Vial) 4 mg IV Q4H PRN PRN Reason: Nausea And Vomiting Stop: 05/24/22 21:58 Last Admin: 04/25/22 23:42 Dose: 4 mg Ondansetron HCl (Ondansetron Inj 2 Mg/Ml 2 Ml Vial) 4 mg IV ONCE PRN PRN Reason: PACU Use Only-Nausea/Vomiting Stop: 04/26/22 23:18 Pantoprazole Sodium (Pantoprazole 40 Mg Tab) 40 mg PO BID REPLACED BY [facility] Stop: 05/24/22 12:44 Last Admin: 04/26/22 08:12 Dose: 40 mg Tramadol HCl (Tramadol Hcl 50 Mg Tablet) 50 mg PO Q6H PRN PRN Reason: severe pain (7-10) Stop: 05/25/22 13:18 (2) Cholelithiasis Biliary obstruction: without biliary obstruction Cholecystitis acuity: acute Cholecystitis presence: with cholecystitis Cholelithiasis location: gallbladder Qualified Code(s): K80.00 - Calculus of gallbladder with acute cholecystitis without obstruction
--- NOTE | 2022-04-26 18:51 | Anesthesiology Progress Note ---
Date of Service April 26, 2022 Anesthesia Post Procedure Vital Signs Vital Signs: Temp Pulse Pulse Resp BP Pulse Ox O2 Del Method 04/26/22 18:29 36.5 C 89 18 158/83 H 93 Nasal Cannula 04/26/22 18:15 36.5 C 83 20 160/82 H 95 Nasal Cannula 04/26/22 17:55 36.5 C 88 22 168/82 H 95 Nasal Cannula 04/26/22 17:45 92 H 23 169/84 H 94 Nasal Cannula 04/26/22 17:35 93 H 24 170/89 H 93 Nasal Cannula 04/26/22 17:25 96 H 22 166/92 H 97 Nebulizer 04/26/22 17:18 37.0 C 98 H 20 174/86 H 95 Oxymask 04/26/22 14:47 36.7 C 84 22 185/91 H 95 Nasal Cannula 04/26/22 08:12 Nasal Cannula 04/26/22 07:13 36.7 C 85 18 159/76 H 92 Nasal Cannula 04/25/22 22:38 Nasal Cannula 04/25/22 22:34 36.4 C L 62 18 158/83 H 94 Nasal Cannula 04/25/22 20:57 36.6 C 78 18 121/84 95 Nasal Cannula 04/25/22 19:00 36.5 C 73 19 144/69 H 94 Nasal Cannula O2 Flow Rate 04/26/22 18:29 2 04/26/22 18:15 2 04/26/22 17:55 2 04/26/22 17:45 2 04/26/22 17:35 2 04/26/22 17:25 15 04/26/22 17:18 8 04/26/22 14:47 1 04/26/22 08:12 04/26/22 07:13 1 04/25/22 22:38 1 04/25/22 22:34 1 04/25/22 20:57 1 04/25/22 19:00 Pain Intensity Abdomen: Pain Intensity: 8 Transfer of Care Handoff Completed per policy Notes Mental Status: alert / awake / arousable Patient Amnestic to Procedure: Yes Nausea / Vomiting: adequately controlled Pain: adequately controlled Airway Patency, RR, SpO2: stable & adequate BP & HR: stable & adequate Hydration State: stable & adequate Anesthetic Complications: no major complications apparent
[2022-04-26] MEDS ORDERED: Nursing to Pharmacy Communication SCH (19:00)
[2022-04-26] MEDS: ALBUT/IPRATROP 3MG/0.5MG NEB 3 ML VIAL NEB SCH ×2 (19:03→23:25)
[2022-04-27] MEDS: metroNIDAZOLE 500 MG/100 ML BAG IV SCH ×3 (03:16→17:26)
[2022-04-27] MEDS: ALBUT/IPRATROP 3MG/0.5MG NEB 3 ML VIAL NEB SCH ×6 (03:27→22:45)
[2022-04-27] MEDS: ACETAMINOPHEN 500 MG TAB PO SCH ×3 (04:24→21:14)
[2022-04-27] MEDS: METOPROLOL TARTRATE 50 MG TAB PO SCH ×2 (07:44→21:05)
[2022-04-27] MEDS: LISINOPRIL/HCTZ 10/12.5MG TAB PO SCH (07:44)
[2022-04-27] MEDS: FAMOTIDINE 40 MG TABLET PO SCH (07:44)
[2022-04-27] MEDS: PANTOprazole 40 MG TAB PO SCH ×2 (07:45→21:05)
[2022-04-27] MEDS: CIPROFLOXACIN / D5W 400 MG/200 ML BAG IV SCH ×2 (07:45→21:06)
[2022-04-27 08:32] LABS: Basophils # (auto) 0.04 K/uL (0-0.2); Basophils % (auto) 0.4 %; Hematocrit (blood only) 41.5 % (42.0-52.0); Hemoglobin 13.9 g/dl (14.0-18.0); Immature Granulocytes # (auto) 0.03 K/uL (0.01-0.20); Immature Granulocytes % (auto) 0.3 %; Lymphocytes # (auto) 1.93 K/uL (1.2-3.4); Lymphocytes % (auto) 18.3 %; Mean Corpuscular Hemoglobin 28.7 pg (25.0-34.0); Mean Corpuscular Hgb Conc 33.5 g/dL (32.0-36.0); Mean Corpuscular Volume 85.7 fL (80.0-100.0); Mean Platelet Volume 10.3 fL (9.4-12.4); Monocytes # (auto) 0.89 K/uL (0.11-0.59); Monocytes % (auto) 8.4 %; Neutrophils # (auto) 7.67 K/uL (1.40-6.50); Neutrophils % (auto) 72.6 %; Platelet Count 250 K/uL (130-400); RDW Coefficient of Variation 13.6 % (11.5-14.5); RDW Standard Deviation 42.8 fL (36.4-46.3); Red Blood Count 4.84 M/uL (4.70-6.10); White Blood Count 10.56 K/ul (4.8-10.8)
[2022-04-27 08:33] LABS: Albumin Globulin Ratio 1.2 (0.9-2); Albumin Level 3.3 gm/dl (3.4-5.0); BUN Creatinine Ratio 20.2 (10-20); Bilirubin,Total 0.8 mg/dl (0.2-1.0); Calcium 8.6 mg/dl (8.5-10.1); Creatinine Clr Calc Pharmacy 73.6 ml/min; Est GFR (Non-African American) 62.1 ml/min; Globulin 2.8 gm/dl (2.5-4.0); Potassium 3.7 mmol/L (3.5-5.1); Total Protein 6.1 gm/dl (6.0-8.3)
[2022-04-27] MEDS: INSULIN ASPART PER UNIT SC SCH ×4 (09:11→20:50)
--- NOTE | 2022-04-27 09:55 | Surgery Progress Note ---
Date of Service April 27, 2022 Assessment & Plan (1) Acute cholecystitis: Plan: POD # 3 s/p laparoscopic subtotal fenestrated cholecystectomy / POD# 1 s/p ERCP with biliary stent placement -afebrile, vss - postop pain resolved - kacy drain with serosanguineous output - t. bili normalized Plan: Doing well from surgical standpoint for discharge home with 5 days of cipro and flagyl home with kacy drain surgical follow-up early next week discharge instructions reviewed Discussed with DR. glass who agrees with above Admission and Anticipated Discharge Date Admission Date: April 25, 2022 Subjective feeling good this am no shortness of breath but still has oxygen, states his oxygen drops down to 89 when oxygen removed no chest pain no n,v no abdominal pain Physical Exam Constitutional: WD/WN, vitals as above + obese, cooperative and co mfortable; no acute distress, not ill appearing and not frail appearing Neck: normal visual inspection and trachea midline Respiratory: normal respiratory effort; no respiratory distress, no labored breathing, no retractions and no cough Gastrointestinal (Abdomen): Inspection/Auscultation: abdomen normal to inspection, + abdominal surgical incision (clean,dry,intact with dermabond) and + abdominal surgical drain present (serosanguineous); abdomen not distended Percussion/Palpation: abdomen soft; abdomen nontender, no guarding and abdomen not rigid Skin: no rashes, warm and dry no jaundice Psychiatric: A+Ox3, euthymic affect Results & Data ([facility]) Vital Signs (Past 12 Hours) Vital Signs Temp Pulse Resp BP Pulse Ox O2 Del Method O2 Flow Rate 04/27/22 07:45 Nasal Cannula 2 04/27/22 07:00 36.5 C 87 16 167/82 H 91 Nasal Cannula 2 04/27/22 07:09 78 18 94 Nasal Cannula 2 04/27/22 03:27 78 18 91 Room Air, Nasal Cannula 2 04/27/22 03:11 36.7 C 77 18 121/69 93 Nasal Cannula 1 04/26/22 22:59 36.7 C 72 18 123/61 95 Nasal Cannula 1 Laboratory Results 04/27/22 04/27/22 04/27/22 Range/Units 08:24 07:30 07:30 WBC 10.56 (4.8-10.8) K/ul RBC 4.84 (4.70-6.10) M/uL Hgb 13.9 L (14.0-18.0) g/dl Hct 41.5 L (42.0-52.0) % MCV 85.7 (80.0-100.0) fL MCH 28.7 (25.0-34.0) pg MCHC 33.5 (32.0-36.0) g/dL RDW Std Deviation 42.8 (36.4-46.3) fL RDW Coeff of Maggie 13.6 (11.5-14.5) % Plt Count 250 (130-400) K/uL MPV 10.3 (9.4-12.4) fL Immature Gran % (Auto) 0.3 % Neut % (Auto) 72.6 % Lymph % (Auto) 18.3 % [place] % (Auto) 8.4 % Eos % (Auto) 0.0 % Baso % (Auto) 0.4 % Neut # (Auto) 7.67 H (1.40-6.50) K/uL Lymph # (Auto) 1.93 (1.2-3.4) K/uL [place] # (Auto) 0.89 H (0.11-0.59) K/uL Eos # (Auto) 0.00 (0-0.50) K/uL Baso # (Auto) 0.04 (0-0.2) K/uL Immature Gran # (Auto) 0.03 (0.01-0.20) K/uL Sodium 139 (136-145) mmol/L Potassium 3.7 (3.5-5.1) mmol/L Chloride 100 (98-107) mmol/L Carbon Dioxide 34 H (21-32) mmol/L Anion Gap 5 (3-11) BUN 23 (6-23) mg/dl Creatinine 1.14 (0.6-1.4) mg/dl Est Cr Clr Drug Dosing 73.6 ml/min Est GFR ( Amer) 72.0 ml/min Est GFR (Non-Af Amer) 62.1 ml/min BUN/Creatinine Ratio 20.2 H (10-20) Glucose 128 H (70-99(Fasting)) mg/dl POC Glucose 128 H (70-99) mg/dl Calcium 8.6 (8.5-10.1) mg/dl Total Bilirubin 0.8 (0.2-1.0) mg/dl AST 35 (13-39) U/L ALT 27 (7-52) U/L Alkaline Phosphatase 54 (34-104) U/L Total Protein 6.1 (6.0-8.3) gm/dl Albumin 3.3 L (3.4-5.0) gm/dl Globulin 2.8 (2.5-4.0) gm/dl Albumin/Globulin Ratio 1.2 (0.9-2) 04/26/22 04/26/22 04/26/22 Range/Units 20:10 17:21 12:17 WBC (4.8-10.8) K/ul RBC (4.70-6.10) M/uL Hgb (14.0-18.0) g/dl Hct (42.0-52.0) % MCV (80.0-100.0) fL MCH (25.0-34.0) pg MCHC (32.0-36.0) g/dL RDW Std Deviation (36.4-46.3) fL RDW Coeff of Maggie (11.5-14.5) % Plt Count (130-400) K/uL MPV (9.4-12.4) fL Immature Gran % (Auto) % Neut % (Auto) % Lymph % (Auto) % [place] % (Auto) % Eos % (Auto) % Baso % (Auto) % Neut # (Auto) (1.40-6.50) K/uL Lymph # (Auto) (1.2-3.4) K/uL [place] # (Auto) (0.11-0.59) K/uL Eos # (Auto) (0-0.50) K/uL Baso # (Auto) (0-0.2) K/uL Immature Gran # (Auto) (0.01-0.20) K/uL Sodium (136-145) mmol/L Potassium (3.5-5.1) mmol/L Chloride (98-107) mmol/L Carbon Dioxide (21-32) mmol/L Anion Gap (3-11) BUN (6-23) mg/dl Creatinine (0.6-1.4) mg/dl Est Cr Clr Drug Dosing ml/min Est GFR ( Amer) ml/min Est GFR (Non-Af Amer) ml/min BUN/Creatinine Ratio (10-20) Glucose (70-99(Fasting)) mg/dl POC Glucose 154 H 119 H 114 H (70-99) mg/dl Calcium (8.5-10.1) mg/dl Total Bilirubin (0.2-1.0) mg/dl AST (13-39) U/L ALT (7-52) U/L Alkaline Phosphatase (34-104) U/L Total Protein (6.0-8.3) gm/dl Albumin (3.4-5.0) gm/dl Globulin (2.5-4.0) gm/dl Albumin/Globulin Ratio (0.9-2)
--- NOTE | 2022-04-27 12:43 | Gastroenterology Progress Note ---
Date of Service April 27, 2022 Assessment & Plan (1) Acute cholecystitis: Plan 1. Clear liquids this morning for breakfast and advance per surgery no GI contraindication to regular diet if tolerates the clear liquids. 2. ERCP in 2 months to remove stent. Our office will contact him to arrange. 3. GI will sign off. Please notify us if any new worsening GI issues. Admission and Anticipated Discharge Date Admission Date: April 25, 2022 Supervising Physician Co-Signing Physician Notes PE as documented - s/p ercp with sphincterotomy yesterday Agree with further plan of care as documented. Subjective 76-year, male, admitted 213 and underwent lap dajuan that day. ERCP yesterday for bile duct stenting for prevention of bile leak in the setting of difficult surgical procedure/risk for leak. Doing well today. Sitting up at the bedside. Tells me minimal abdominal pain and asks to eat. Surgical drain with pink fluid, no bile. LFTs have been normal. Review of Systems Review of Systems: ROS: Gen: Denies weakness, fevers, weight loss Eyes: No eye redness, or pain, no recent vision changes Resp: No SOB, no cough Cardio: No palpitations/irregular beats, no chest pain GI: As per HPI, otherwise : Denies pain on urination Skin: No jaundice, itching or new rashes Physical Exam Constitutional: WD/WN, vitals as above Eyes: PERRL, conjunctivae normal, anicteric sclerae ENMT: external ear and nose normal, oropharynx normal Respiratory: normal respiratory effort, lungs clear to auscultation Cardiovascular: RRR, no murmur, no edema Gastrointestinal (Abdomen): Active bowel sounds, obese, mild distention, drain in place (pink fluid), laparoscopic sites healing well. Tenderness around the surgical sites otherwise negative. Skin: no rashes, warm and dry Neurologic: PERRL, EOMI, accommodation nl, no face palsy, no dysarthria Psychiatric: A+Ox3, euthymic affect Lymphatic: no cervical or axillary lymphadenopathy Results & Data ([facility]) Vital Signs (Past 12 Hours) Vital Signs Temp Pulse Resp BP Pulse Ox O2 Del Method O2 Flow Rate 04/27/22 11:00 36.7 C 67 18 144/81 H 96 Nasal Cannula 2 04/27/22 07:45 Nasal Cannula 2 04/27/22 07:00 36.5 C 87 16 167/82 H 91 Nasal Cannula 2 04/27/22 07:09 78 18 94 Nasal Cannula 2 04/27/22 03:27 78 18 91 Room Air, Nasal Cannula 2 04/27/22 03:11 36.7 C 77 18 121/69 93 Nasal Cannula 1 Laboratory Results WBC 4, Hb 12.9, HCT 37.6, PLT S69, NA 139, K3.6, CL 105, CO2 27, CO2 23, CR 1.16 Diagnostic Findings ERCP 04/26/22: - No clear bile leakage seen however the cystic duct was occluded. - A biliary sphincterotomy was performed. - One plastic biliary stent was placed into the common bile duct in view of high risk of delayed leak.
--- NOTE | 2022-04-27 14:41 | Hospitalist Progress Note ---
Date of Service April 27, 2022 Assessment & Plan (1) Acute cholecystitis: Plan: POD #1 s/p lap dajuan. Post op pain, cont Tylenol, added Tramadol. Additional narcotics as needed Cont wound and drain management per surgery. ERCP planned for am to prevent a bile leak Cont cipro/flagyl Clinically much better Status post ERCP on 09/23/2022 and placement of a plastic biliary stent into the common bile duct Remains stable and his diet will be advanced Surgery cleared him for discharge if he tolerates diet We will continue oral antibiotic for the next 5 days if discharged (2) Cholelithiasis: Plan: ERCP today with possible stent placement (3) Type 2 diabetes mellitus: Plan: A1C is 6.7 reflecting good control. Cont holding metformin and giving novolog with correction factor and carb coverage. With light coverage needed, will hold on glargine at this time. (4) Essential hypertension: Plan: chronic, controlled. Cont Lis/HCTZ per home regimen. Blood pressure remains on the upper side at 169/84 We will monitor (5) Nephrolithiasis: Plan: present on imaging with no evidence of ureteral calculi. DVT proph: SCDs/ambulation-held in setting of upcoming procedure tomorrow. DNR/DNI Dispo-PCU, transition to med/sug. Admission and Anticipated Discharge Date Admission Date: April 25, 2022 Subjective 04/26/2022 The patient was seen and examined in medical floor He is a status post cholecystectomy and awaiting ERCP today Clinically much better and denies any significant symptoms 04/27/2022 The patient was seen and examined in medical floor He is a status post ERCP and a stent placement the biliary duct Status post laparoscopic cholecystectomy and denies any significant abdominal discomfort and/or pain Will advance diet if tolerated likely be discharged this afternoon Review of Systems Review of Systems: All systems reviewed and are unremarkable except as noted below Gastrointestinal: Abdominal distention with minimal discomfort but no pain, nausea and or vomiting Physical Exam Physical Exam: Sitting at the edge of the bed without any acute distress Constitutional: well developed, well nourished, + ill appearing and + obese Eyes: PERRL, conjunctivae normal, anicteric sclerae ENMT: external ear and nose normal, oropharynx normal Neck: trachea midline, no thyromegaly Respiratory: no respiratory distress Auscultation: lungs clear to auscultation bilaterally Cardiovascular: Rate/Rhythm: regular rate and regular rhythm; not tachycardic Heart Sounds: normal S1 and normal S2; no murmur Extremities: + edema (Trace edema bilaterally) Gastrointestinal (Abdomen): Inspection/Auscultation: + abdomen distended and normal bowel sounds Percussion/Palpation: + abdomen tender (Tender all over without any rebound) and abdomen soft Musculoskeletal: No acute arthritis involving any joint Neurologic: normal touch/pain/proprioception and moves all extremities; no focal motor deficits Psychiatric: A+Ox3, euthymic affect Lymphatic: no cervical or axillary lymphadenopathy Results & Data Results & Data ([facility]) Vital Signs (Past 12 Hours) Vital Signs Temp Pulse Resp BP Pulse Ox Pulse Ox Pulse Ox 04/27/22 13:41 95 93 04/27/22 11:00 36.7 C 67 18 144/81 H 96 04/27/22 07:45 04/27/22 07:00 36.5 C 87 16 167/82 H 91 04/27/22 07:09 78 18 94 04/27/22 03:27 78 18 91 04/27/22 03:11 36.7 C 77 18 121/69 93 Pulse Ox O2 Del Method O2 Flow Rate O2 Flow Rate O2 Flow Rate O2 Flow Rate 04/27/22 13:41 85 L 1 1 0 04/27/22 11:00 Nasal Cannula 2 04/27/22 07:45 Nasal Cannula 2 04/27/22 07:00 Nasal Cannula 2 04/27/22 07:09 Nasal Cannula 2 04/27/22 03:27 Room Air, Nasal Cannula 2 04/27/22 03:11 Nasal Cannula 1 Laboratory Results Short CBC 04/27/22 Range/Units 07:30 WBC 10.56 (4.8-10.8) K/ul Hgb 13.9 L (14.0-18.0) g/dl Hct 41.5 L (42.0-52.0) % Plt Count 250 (130-400) K/uL BMP 04/27/22 07:30 Sodium 139 Potassium 3.7 Chloride 100 Carbon Dioxide 34 H BUN 23 Creatinine 1.14 Glucose 128 H Calcium 8.6 Liver Function 04/27/22 Range/Units 07:30 Total Bilirubin 0.8 (0.2-1.0) mg/dl AST 35 (13-39) U/L ALT 27 (7-52) U/L Alkaline Phosphatase 54 (34-104) U/L Albumin 3.3 L (3.4-5.0) gm/dl Medications Administered Current Inpatient Medications Acetaminophen (Acetaminophen 500 Mg Tab) 1,000 mg PO Q8H [facility] Stop: 05/25/22 20:59 Last Admin: 04/27/22 12:53 Dose: 1,000 mg Albuterol (Albut/Ipratrop 3mg/0.5mg Neb 3 Ml Vial) 3 ml NEB Q4R RHIANNA; Protocol Stop: 05/26/22 18:59 Last Admin: 04/27/22 11:34 Dose: Not Given Dextrose (Dextrose 50% 50 Ml Syringe) 25 - 50 ml IV UD PRN; Protocol PRN Reason: Hypoglycemia Protocol Stop: 05/24/22 15:14 Diphenhydramine HCl (Diphenhydramine Capsule 25 Mg Cap) 25 mg PO Q4H PRN PRN Reason: hives, itching or insomnia Stop: 05/24/22 21:58 Famotidine (Famotidine 40 Mg Tablet) 40 mg PO QAM RHIANNA Stop: 05/25/22 08:59 Last Admin: 04/27/22 07:44 Dose: 40 mg Glucagon (Glucagon For Inj 1 Mg Vial) 1 mg SQ UD PRN; Protocol PRN Reason: Hypoglycemia Protocol Stop: 05/24/22 15:14 Glucose (Glucose 40% Gel 15 Gm Tube) 15 - 30 gm PO UD PRN; Protocol PRN Reason: Hypoglycemia Protocol Stop: 05/24/22 15:14 Glucose (Glucose 10 Tab/Tube) 4 - 8 tab PO UD PRN; Protocol PRN Reason: Hypoglycemia Treatment Stop: 05/24/22 15:14 Lisinopril/HCTZ (Lisinopril/Hctz 10/12.5mg Tab) 1 tab PO DAILY [facility] Stop: 05/24/22 11:59 Last Admin: 04/27/22 07:44 Dose: 1 tab Metronidazole (Flagyl) 500 mg in 100 mls @ 100 mls/hr IV Q8H [facility] Stop: 05/04/22 15:29 Last Infusion: 04/27/22 11:00 Dose: Infused Promethazine HCl 12.5 mg/ (Sodium Chloride) 50.5 mls @ 204 mls/hr IV Q6H PRN PRN Reason: Nausea And Vomiting Stop: 05/24/22 21:58 Ciprofloxacin (Cipro / D5w) 400 mg in 200 mls @ 100 mls/hr IV Q12H [facility]; Protocol Stop: 05/04/22 19:59 Last Infusion: 04/27/22 09:51 Dose: Infused Insulin Aspart (Insulin Aspart Per Unit) 0 units SC ACHS [facility] Stop: 05/24/22 16:29 Last Admin: 04/27/22 12:48 Dose: 2 units Metoprolol Tartrate (Metoprolol Tartrate 50 Mg Tab) 50 mg PO BID [facility] Stop: 05/24/22 11:59 Last Admin: 04/27/22 07:44 Dose: 50 mg Miscellaneous (Carbohydrates For Hypoglycemia ) 15 - 30 gm PO UD PRN PRN Reason: Hypoglycemia Protocol Stop: 05/24/22 15:14 Ondansetron HCl (Ondansetron Inj 2 Mg/Ml 2 Ml Vial) 4 mg IV Q4H PRN PRN Reason: Nausea And Vomiting Stop: 05/24/22 21:58 Last Admin: 04/25/22 23:42 Dose: 4 mg Pantoprazole Sodium (Pantoprazole 40 Mg Tab) 40 mg PO BID [facility] Stop: 05/24/22 12:44 Last Admin: 04/27/22 07:45 Dose: 40 mg Tramadol HCl (Tramadol Hcl 50 Mg Tablet) 50 mg PO Q6H PRN PRN Reason: severe pain (7-10) Stop: 05/25/22 13:18 (2) Cholelithiasis Biliary obstruction: without biliary obstruction Cholecystitis acuity: acute Cholecystitis presence: with cholecystitis Cholelithiasis location: gallbladder Qualified Code(s): K80.00 - Calculus of gallbladder with acute cholecystitis without obstruction
[2022-04-27] MEDS ORDERED: CALCIUM CARBONATE 500 MG CHEWABLE TAB PO PRN (15:42)
[2022-04-28] MEDS ORDERED: METOPROLOL TARTRATE 1 MG/ML VIAL IV PRN (01:14)
[2022-04-28] MEDS: metroNIDAZOLE 500 MG/100 ML BAG IV SCH ×3 (01:54→17:00)
[2022-04-28] MEDS ORDERED: Heparin IV Adult Wt-Based Low-Dose *NO* Bolus Protocol IV SCH (03:22)
[2022-04-28] MEDS ORDERED: HEPARIN SODIUM/DEXTROSE 25,000 UNITS/500 ML BAG IV SCH (03:30)
[2022-04-28 04:18] LABS: Basophils # (auto) 0.09 K/uL (0-0.2); Basophils % (auto) 0.8 %; Eosinophils % (auto) 0.9 %; Hematocrit (blood only) 42.5 % (42.0-52.0); Hemoglobin 14.3 g/dl (14.0-18.0); Immature Granulocytes # (auto) 0.02 K/uL (0.01-0.20); Immature Granulocytes % (auto) 0.2 %; Lymphocytes # (auto) 1.67 K/uL (1.2-3.4); Lymphocytes % (auto) 15.7 %; Mean Corpuscular Hemoglobin 29.1 pg (25.0-34.0); Mean Corpuscular Hgb Conc 33.6 g/dL (32.0-36.0); Mean Corpuscular Volume 86.4 fL (80.0-100.0); Mean Platelet Volume 10.1 fL (9.4-12.4); Monocytes # (auto) 0.91 K/uL (0.11-0.59); Monocytes % (auto) 8.6 %; Neutrophils # (auto) 7.85 K/uL (1.40-6.50); Neutrophils % (auto) 73.8 %; Platelet Count 265 K/uL (130-400); RDW Coefficient of Variation 13.7 % (11.5-14.5); RDW Standard Deviation 43.4 fL (36.4-46.3); Red Blood Count 4.92 M/uL (4.70-6.10); White Blood Count 10.64 K/ul (4.8-10.8)
[2022-04-28 04:51] LABS: INR 1.4 (0.9-1.1); Partial Thromboplastin Time 27.7 Seconds (21.0-31.0); Prothrombin Time 14.7 Seconds (9.0-12.0)
[2022-04-28] MEDS: ACETAMINOPHEN 500 MG TAB PO SCH ×3 (05:11→21:03)
--- NOTE | 2022-04-28 07:02 | Communication Note ---
Date of Service: April 28, 2022 Transferred to tele as patient was in rapid a fib. ordered iv Lopressor prn, echo and cardio consult. troponin came back as 379 .Seems asymptomatic. Started on low dose iv heparin. IV Lopressor prn
[2022-04-28] MEDS: INSULIN ASPART PER UNIT SC SCH ×4 (07:51→21:01)
--- NOTE | 2022-04-28 07:55 | Surgery Progress Note ---
Date of Service April 28, 2022 Assessment & Plan (1) Acute cholecystitis: Plan POD #4 s/p laparoscopic cholecystectomy, POD #2 s/p ERCP with stent placement Now in PCU awaiting cardiac work-up for rapid A-fib and elevated troponin Afebrile, tolerating diet, minimal pain in the abdomen Doing well from the surgical standpoint, will await cardiac work-up Admission and Anticipated Discharge Date Admission Date: April 25, 2022 Subjective POD #4 s/p laparoscopic fenestrated subtotal cholecystectomy, POD #2 s/p ERCP with stent placement Overnight had rapid A-fib. Troponin elevated. He was transferred to the PCU. Echocardiogram is ordered. He states he is feeling well. Denies chest pain. Denies abdominal pain. Tolerating a diet. No fevers or chills. Physical Exam Physical Exam: NAD, A&O x3 Abdomen: Soft, nontender, nondistended Incisions healing well without erythema or discharge, Dermabond in place MACHELLE drain with serosanguineous drainage Results & Data ([facility]) Vital Signs (Past 12 Hours) Vital Signs Temp Pulse Pulse Resp BP Pulse Ox Pulse Ox 04/28/22 07:36 36.8 C 107 H 18 158/102 H 97 04/28/22 07:00 118 H 04/28/22 06:21 94 04/28/22 03:18 36.3 C L 100 H 18 94 04/28/22 02:49 04/27/22 23:30 125 H 173/80 H 93 04/27/22 21:10 04/28/22 01:50 36.5 C 116 H 20 127/88 94 04/27/22 22:45 99 H 18 88 L 04/27/22 22:40 36.3 C L 98 H 18 155/83 H 93 O2 Del Method O2 Del Method O2 Flow Rate O2 Flow Rate 04/28/22 07:36 Nasal Cannula 2 04/28/22 07:00 04/28/22 06:21 Nasal Cannula 2 04/28/22 03:18 Room Air 04/28/22 02:49 Nasal Cannula 2 04/27/22 23:30 Nasal Cannula 2 04/27/22 21:10 Nasal Cannula 1 04/28/22 01:50 Nasal Cannula 2 04/27/22 22:45 Room Air 04/27/22 22:40 Room Air
[2022-04-28] MEDS: CIPROFLOXACIN / D5W 400 MG/200 ML BAG IV SCH ×2 (08:24→20:49)
[2022-04-28] MEDS: LISINOPRIL/HCTZ 10/12.5MG TAB PO SCH (08:24)
[2022-04-28] MEDS: PANTOprazole 40 MG TAB PO SCH ×2 (08:24→20:51)
[2022-04-28] MEDS: FAMOTIDINE 40 MG TABLET PO SCH (08:25)
[2022-04-28] MEDS: METOPROLOL TARTRATE 50 MG TAB PO SCH (08:25)
[2022-04-28 08:27] LABS: Basophils # (auto) 0.09 K/uL (0-0.2); Eosinophils # (auto) 0.08 K/uL (0-0.50); Eosinophils % (auto) 0.9 %; Hematocrit (blood only) 43.9 % (42.0-52.0); Hemoglobin 14.4 g/dl (14.0-18.0); Immature Granulocytes # (auto) 0.02 K/uL (0.01-0.20); Immature Granulocytes % (auto) 0.2 %; Lymphocytes # (auto) 1.71 K/uL (1.2-3.4); Lymphocytes % (auto) 18.2 %; Mean Corpuscular Hemoglobin 28.5 pg (25.0-34.0); Mean Corpuscular Hgb Conc 32.8 g/dL (32.0-36.0); Mean Corpuscular Volume 86.9 fL (80.0-100.0); Mean Platelet Volume 10.1 fL (9.4-12.4); Monocytes # (auto) 0.88 K/uL (0.11-0.59); Monocytes % (auto) 9.4 %; Neutrophils # (auto) 6.62 K/uL (1.40-6.50); Neutrophils % (auto) 70.3 %; Platelet Count 292 K/uL (130-400); RDW Coefficient of Variation 13.9 % (11.5-14.5); RDW Standard Deviation 44.1 fL (36.4-46.3); Red Blood Count 5.05 M/uL (4.70-6.10)
[2022-04-28 08:47] LABS: Alanine Aminotransferase 24 U/L (7-52); Albumin Globulin Ratio 1.2 (0.9-2); Albumin Level 3.4 gm/dl (3.4-5.0); Alkaline Phosphatase 55 U/L (34-104); BUN Creatinine Ratio 18.5 (10-20); Bilirubin,Total 0.8 mg/dl (0.2-1.0); Blood Urea Nitrogen 17 mg/dl (6-23); Calcium 8.5 mg/dl (8.5-10.1); Carbon Dioxide 33 mmol/L (21-32); Chloride 100 mmol/L (98-107); Creatinine Clr Calc Pharmacy 90.2 ml/min; Est GFR (African American) 93.3 ml/min; Est GFR (Non-African American) 80.5 ml/min; Globulin 2.8 gm/dl (2.5-4.0); Glucose 131 mg/dl (70-99(Fasting)); Total Protein 6.2 gm/dl (6.0-8.3); Troponin I High Sensitivity 281.6 pg/ml (0-20)
--- NOTE | 2022-04-28 09:18 | Cardiology Consultation ---
Date of Consultation April 28, 2022 Assessment & Plan (1) Atrial fibrillation with RVR: (2) Elevated troponin: (3) Essential hypertension: Plan 76 year old male who presented to ED with acute abdominal pain, found to have cholecystitis and underwent lap dajuan and ERCP with stent placement with resolution in his symptoms. Patient converted to AFIB with RVR on 03/28 around midnight. Patient asymptomatic. [id number] Score of 4 (age2, HTN, DM) The pathophysiology of PAF was discussed with patient and family in detail including stroke risk. Heart rates remain elevated- increase metoprolol tartrate to 75 mg BID. Monitor on telemetry while inpatient. IV heparin for AC- Denies any prior history of bleeding. Will transition heparin to Eliquis 5 mg twice daily. Case management consulted for cost. Patient ate breakfast this am- unable to do cardioversion today. Okay for patient to eat- will make NPO at midnight, inpatient vs outpatient cardioversion being considered. Troponin elevated (379.1>>281). Echo with preserved LVEF and no WMA. Trops elevated likely in the setting of tachycardia/demand and acute illness. Future considerations of outpatient nuclear stress testing. Hypertension- stop lisinopril/HCTZ combo pill. Increase lisinopril to 20 mg daily (will give an addition 10 mg this am). HCTZ 12.5 mg daily resumed tomorrow. Case discussed with Dr. Her- melani han. Supervising Physician Co-Signing Physician Notes Patient was seen and examined. History as well outlined above. Acute presentation with cholecystitis undergoing laparoscopic cholecystectomy and ERCP. Patient lapsed asymptomatically into atrial fibrillation last evening. Patient unaware of arrhythmia and no acute complaints though elevated heart rate observed. No interruption in beta-poppy Patient given IV metoprolol with slowing of heart rate but remains elevated this morning. Once again asymptomatic EKG without acute ischemic changes Echocardiogram with small hypertrophied left ventricle with hyperdynamic LV function and no wall motion abnormalities Discussed atrial fibrillation in detail with patient Do not expect patient to tolerate elevated heart rates with this degree of hypertrophy and small ventricle Already eaten today. Discussed options of management in detail with patient including synchronized electrical cardioversion Will increase as above metoprolol to tartrate to 75 mg twice per day, continue anticoagulation. Give additional potassium today Maintain telemetry. Could consider synchronized cardioversion tomorrow depending on clinical response to above versus outpatient management If any hypoxia consider CTA chest to exclude thromboembolic phenomena History of Present Illness Reason for Consultation: Atrial fibrillation with RVR Requesting Physician: Alicia braden Attending Physician: Adela Shelley MD History of Present Illness 76-year-old male who initially presented to the [facility] emergency department on 04/24 due to epigastric discomfort. Patient was found to have acute cholecystitis and underwent a lap dajuan on 04/24. He also underwent ERCP with stent placement on 04/26. This morning around midnight patient went into atrial fibrillation with RVR. Heart rates are in the 130s. Patient was started on IV heparin and given additional IV Lopressor. Patient remains on home dosing of p.o. metoprolol tartrate 50 mg twice daily. Lab work: BMP stable. High-sensitivity troponin elevated (379.1>>281.6) Tele: AFIB 90s-100s, occasionally 130s Echo 04/28: Afib during study. LVEF 65-70%, no WMA. Mild concentric LVH. No gross valvular disease. Upon entrance into the room patient resting in bed without concern. Family at bedside. Tolerated breakfast well- no further abdominal discomfort. Patient is asymptomatic with his atrial fib. Denies any chest pain. Former heavy smoker- quit 36 years ago. Chronic shortness of breath. No palpitations, dizziness, or syncope. No orthopnea, PND or lower extremity edema. Primary care- Dr. Hidalgo at [facility]. No prior manager of planning. Past medical history: Hypertension Diabetes Allergies Allergy/AdvReac Type Severity Reaction Status Date / Time unknown anesthetic agent AdvReac Nausea Uncoded 04/24/22 12:49 Home Medications Medication Instructions Recorded Confirmed Type aspirin 81 mg tablet,delayed 162 mg PO DAILY 04/24/22 04/24/22 History release lisinopril 10 1 tab PO DAILY 04/24/22 04/24/22 History mg-hydrochlorothiazide 12.5 mg tablet metformin 500 mg tablet,extended 500 mg PO DAILY 04/24/22 04/24/22 History release 24 hr metoprolol tartrate 50 mg tablet 50 mg PO BID 04/24/22 04/24/22 History ciprofloxacin HCl 500 mg tablet 500 mg PO BID #10 tabs 04/27/22 Rx metronidazole 500 mg tablet 500 mg PO TID #15 tabs 04/27/22 Rx Patient History Medical History Diabetic neuropathy Duodenal ulcer per Epic chart but pt cannot recall Essential hypertension History of prostate cancer Treated surgically - no XRT or chemo Nephrolithiasis Type 2 diabetes mellitus Surgical History History of appendectomy History of cataract surgery History of robot-assisted laparoscopic radical prostatectomy History of tonsillectomy and adenoidectomy Hx of neck surgery related to an accident in a pool Family History Mother Heart disease Hypertension Social History Smoking Status: Former smoker Smoking End Date: >20 yrs ago; Hx Alcohol Use: Yes Alcohol type: beer Hx Substance Use: No Preferred Language: Telugu Communication Ability: Effective Cow Washer Required: No Beliefs That Will Affect Care: None Current Living Situation: Spouse and Family Feels Safe at Home: Yes Assistive Devices: Cane Review of Systems Review of Systems: All systems reviewed & are unremarkable except as noted in HPI & below Physical Exam Constitutional: WD/WN, vitals as above no acute distress Eyes: PERRL, conjunctivae normal, anicteric sclerae Neck: normal visual inspection and trachea midline Respiratory: normal respiratory effort, lungs clear to auscultation Cardiovascular: Rate/Rhythm: + tachycardic and + irregularly irregular Heart Sounds: normal S1 and normal S2; no murmur Vessels: no JVD Extremities: no edema Gastrointestinal (Abdomen): normal bowel sounds, soft, nontender, no hepatosplenomegaly Skin: no rashes, warm and dry Psychiatric: A+Ox3, euthymic affect Results & Data ([facility]) Vital Signs (Past 12 Hours) Vital Signs Temp Pulse Pulse Resp BP Pulse Ox Pulse Ox 04/28/22 07:36 36.8 C 107 H 18 158/102 H 97 04/28/22 07:00 118 H 04/28/22 06:21 94 04/28/22 03:18 36.3 C L 100 H 18 94 04/28/22 02:49 04/27/22 23:30 125 H 173/80 H 93 04/28/22 01:50 36.5 C 116 H 20 127/88 94 04/27/22 22:45 99 H 18 88 L 04/27/22 22:40 36.3 C L 98 H 18 155/83 H 93 O2 Del Method O2 Del Method O2 Flow Rate O2 Flow Rate 04/28/22 07:36 Nasal Cannula 2 04/28/22 07:00 04/28/22 06:21 Nasal Cannula 2 04/28/22 03:18 Room Air 04/28/22 02:49 Nasal Cannula 2 04/27/22 23:30 Nasal Cannula 2 04/28/22 01:50 Nasal Cannula 2 04/27/22 22:45 Room Air 04/27/22 22:40 Room Air Laboratory Results Cardiac Enzymes 04/28/22 04/28/22 04/28/22 Range/Units 01:32 07:24 09:15 AST TNP 26 Troponin I High Sens 379.1 H* 281.6 H* D (0-20) pg/ml Coagulation 04/28/22 Range/Units 03:47 PT 14.7 H (9.0-12.0) Seconds APTT 27.7 (21.0-31.0) Seconds CBC 04/28/22 04/28/22 Range/Units 03:47 07:24 WBC 10.64 9.40 (4.8-10.8) K/ul RBC 4.92 5.05 (4.70-6.10) M/uL Hgb 14.3 14.4 (14.0-18.0) g/dl Hct 42.5 43.9 (42.0-52.0) % Plt Count 265 292 (130-400) K/uL Neut # (Auto) 7.85 H 6.62 H (1.40-6.50) K/uL Lymph # (Auto) 1.67 1.71 (1.2-3.4) K/uL Sargent # (Auto) 0.91 H 0.88 H (0.11-0.59) K/uL Eos # (Auto) 0.10 0.08 (0-0.50) K/uL Baso # (Auto) 0.09 0.09 (0-0.2) K/uL Comprehensive Metabolic Panel 04/28/22 04/28/22 Range/Units 07:24 09:15 Sodium TNP 141 Potassium TNP 3.7 Chloride 100 102 (98-107) mmol/L Carbon Dioxide 33 H 32 (21-32) mmol/L BUN 17 17 (6-23) mg/dl Creatinine 0.92 0.97 (0.6-1.4) mg/dl Glucose 131 H 124 H (70-99(Fasting)) mg/dl Calcium 8.5 8.6 (8.5-10.1) mg/dl AST TNP 26 ALT 24 (7-52) U/L Alkaline Phosphatase 55 (34-104) U/L Total Protein 6.2 (6.0-8.3) gm/dl Albumin 3.4 (3.4-5.0) gm/dl Intake and Output 04/27/22 04/28/22 04/28/22 22:59 06:59 14:59 Intake Total 131.667 / 700.000 268.333 / 700.000 300 / 300 Output Total Balance 111.667 / 649.000 267.333 / 649.000 300 / 300 Intake: IV 131.667 / 700.000 268.333 / 700.000 300 / 300 Ciprofloxacin / D5w 400 mg In 31.667 / 400.000 168.333 / 400.000 200 / 200 200 ml @ 100 mls/hr IV Q12H RHIANNA Rx#:[id number] metroNIDAZOLE 500 mg In 100 ml 100 / 300 100 / 300 100 / 100 @ 100 mls/hr IV Q8H RHIANNA Rx#: [id number] Output: Drain Output 20 / 50 Right Abdomen MACHELLE 20 / 50 # Bowel Movements Other: # Unmeasured Voids 2 Weight 123.831 kg Weight Measurement Method Built in [facility]
[2022-04-28] MEDS ORDERED: METOPROLOL TARTRATE 25 MG TAB PO STA (10:16)
[2022-04-28] MEDS ORDERED: lisinopril 10 MG TAB PO ONE (11:00)
[2022-04-28 11:28] LABS: BUN Creatinine Ratio 17.5 (10-20); Calcium 8.6 mg/dl (8.5-10.1); Creatinine Clr Calc Pharmacy 85.5 ml/min; Est GFR (African American) 87.5 ml/min; Est GFR (Non-African American) 75.5 ml/min; Magnesium 1.8 mg/dl (1.7-2.4); Potassium 3.7 mmol/L (3.5-5.1)
[2022-04-28 11:55] LABS: Partial Thromboplastin Ratio 1.1; Partial Thromboplastin Time 31.6 Seconds (21.0-31.0)
[2022-04-28] MEDS ORDERED: POTASSIUM CHLORIDE CRTAB 20 MEQ TABCR PO STA (13:49)
[2022-04-28] MEDS: APIXABAN 5 MG TABLET PO SCH ×2 (14:13→20:50)
--- NOTE | 2022-04-28 15:01 | Hospitalist Progress Note ---
Date of Service April 28, 2022 Assessment & Plan (1) Atrial fibrillation with RVR: Plan: Converted to A fib with RVR overnight with HR up to 130s. Transferred to PCU, started on IV heparin for anticoagulation and PRN IV lopressor added HR now low 100s, remains asymptomatic Evaluated by cardiology today with recommendation to increase metoprolol to tartrate to 75 mg twice daily and transition heparin to Eliquis 5 mg twice daily Make NPO at midnight as inpatient versus outpatient cardioversion being considered Will give additional K with goal >4, daily BMP (2) Elevated troponin: Plan: HS troponin elevated 379 --> 281 --> 194.1 in setting of A fib with RVR EKG without ischemic changes Echocardiogram with small hypertrophied left ventricle with hyperdynamic LV function and no wall motion abnormalities (3) Acute cholecystitis: (4) Cholelithiasis: Plan: POD #4 s/p laparoscopic cholecystectomy, POD #2 s/p ERCP with placement of a plastic biliary stent into the common bile duct Post op pain, cont Tylenol, added Tramadol Additional narcotics as needed Cont wound and drain management per surgery Cont cipro/flagyl course (4 days remaining) Tolerating diet without issue (5) Type 2 diabetes mellitus: Plan: A1C is 6.7 reflecting good control. Cont holding metformin and giving novolog with correction factor and carb coverage With light coverage needed, will hold on glargine at this time (6) Essential hypertension: Plan: Chronic, controlled. Per cardiology, increasing lisinopril to 20mg daily. Plan to resume HCTZ 12.5 tomorrow (7) Nephrolithiasis: Plan: Present on imaging with no evidence of ureteral calculi DVT proph: IV heparin, transitioning to Eliquis DNR/DNI Dispo-PCU A total of 50 minutes were spent with greater than 50% of that time face to face with the patient, personally reviewing all current laboratories, imaging studies, past medication reconciliation, outpatient chart review, and discussion with specialists to collaborate care for the patient with attending and utilization of translation services. Please see attending documentation for corrections and/or additions. Admission and Anticipated Discharge Date Admission Date: April 25, 2022 Supervising Physician Co-Signing Physician Notes Attending addendum: Patient was seen and examined in telemetry unit He was noted to be in A-fib with RVR without any symptoms last night Remains in atrial fibrillation and the rate is around 100 Appreciate cardiology input and recommendation for cardioversion tomorrow On examination No apparent distress at rest Hemodynamically stable Chestclear to auscultate bilaterally HeartS1-S2, regular Abdomendistended, soft and mildly tender, bowel sound present Extremitiesno edema His labs, EKG and imaging studies reviewed Has A-fib with RVR No cardiac symptoms Status post ERCP and cholecystectomy Agree with assessment and plan as outlined above by VIRGEN Saavedra DR Subjective Patient seen and examined in 205. Went into asymptomatic atrial fibrillation with RVR overnight and was transferred to PCU. Per telemetry review, heart rate in the 120s to 130s overnight and improved to 110s this morning. Patient denies any lightheadedness, chest pain, palpitations. Troponin was elevated but no acute EKG changes. Continued twice daily beta-poppy which is a home medication, as needed IV Lopressor added and started on IV heparin for anticoagulation. Patient continues to improve from a postoperative standpoint passing flatus but no bowel movement yet. Tolerating normal diet. Denies any fever, chills, headache, shortness of breath, nausea, vomiting, abdominal pain, dysuria. Review of Systems Review of Systems: At least ten systems reviewed and negative except as noted in the HPI. Physical Exam Physical Exam: Gen: WD/WN, NAD, sitting on side of bed, A&Ox3 HEENT: Normocephalic, atraumatic, conjunctivae moist, sclerae anicteric, mucous membranes moist Lung: Clear to Auscultation bilaterally, no wheezes/rales/rhonchi Heart: irregular rate & rhythm, no murmurs, rubs, or gallops Abdomen: NT, small amount of distention +BS x 4. + MACHELLE drain with serosanguineous drainage Extremities: no edema Skin: Warm, no rash Results & Data Results & Data ([facility]) Vital Signs (Past 12 Hours) Vital Signs Temp Pulse Pulse Resp BP Pulse Ox Pulse Ox 04/28/22 12:41 36.6 C 103 H 16 127/79 92 04/28/22 07:36 36.8 C 107 H 18 158/102 H 97 04/28/22 07:00 118 H 04/28/22 06:21 94 04/28/22 03:18 36.3 C L 100 H 18 94 04/28/22 02:49 O2 Del Method O2 Del Method O2 Flow Rate O2 Flow Rate 04/28/22 12:41 Room Air 04/28/22 07:36 Nasal Cannula 2 04/28/22 07:00 04/28/22 06:21 Nasal Cannula 2 04/28/22 03:18 Room Air 04/28/22 02:49 Nasal Cannula 2 Laboratory Results Short CBC 04/28/22 04/28/22 Range/Units 03:47 07:24 WBC 10.64 9.40 (4.8-10.8) K/ul Hgb 14.3 14.4 (14.0-18.0) g/dl Hct 42.5 43.9 (42.0-52.0) % Plt Count 265 292 (130-400) K/uL BMP 04/28/22 04/28/22 07:24 09:15 Sodium TNP 141 Potassium TNP 3.7 Chloride 100 102 Carbon Dioxide 33 H 32 BUN 17 17 Creatinine 0.92 0.97 Glucose 131 H 124 H Calcium 8.5 8.6 Liver Function 04/28/22 04/28/22 Range/Units 07:24 09:15 Total Bilirubin 0.8 (0.2-1.0) mg/dl AST TNP 26 ALT 24 (7-52) U/L Alkaline Phosphatase 55 (34-104) U/L Albumin 3.4 (3.4-5.0) gm/dl Diagnostic Findings Chest X-Ray 04/24/22 06:09 XR chest 1V portable HISTORY: 76 years-old Male Chest pain, nonspecific acute right upper quadrant abdominal pain COMPARISON: None TECHNIQUE: AP view of the chest FINDINGS: Cardiac silhouette is upper limits of normal in size. No pneumothorax or overt pulmonary edema. Linear left basilar opacities with small left pleural effusion. Bones appear grossly intact. IMPRESSION: Small left pleural effusion with mild left lung base opacities, favoring atelectasis. ACT 112: Negative or not required by law. The above report was generated using voice recognition software. It may contain grammatical, syntax or spelling errors. Electronically signed by: Abdiaziz Carrasquillo M.D. 04/24/2022 7:13 AM Gallbladder Ultrasound 04/24/22 06:21 ABDOMINAL ULTRASOUND, RIGHT UPPER QUADRANT HISTORY: Acute right upper quadrant abdominal pain ruq pain. COMPARISON: None. FINDINGS: With limited exam secondary to patient body habitus. Pancreas: The pancreas is mostly obscured by bowel gas. Liver: Increased echogenicity of the liver measuring up to 15.7 cm in length. Gallbladder: Layering cholelithiasis. Gallbladder wall is upper limits of normal at 3 mm. Possible adenomyomatosis of the gallbladder fundus. No pericholecystic fluid. Negative sonographic Don's sign. CBD: 0.5 cm Right kidney: 6 mm nonobstructing calculus of the superior pole right kidney. 5 cm cyst of the inferior pole right kidney. No hydronephrosis. IMPRESSION: 1. Cholelithiasis with mild nonspecific gallbladder wall thickening. No pericholecystic fluid identified and the sonographic Don sign was reported as negative. Correlation can be made with nuclear medicine hepatobiliary scan to exclude acute cholecystitis. 2. No biliary ductal dilation. 3. Right nephrolithiasis. ACT 112: Negative or not required by law. Electronically signed by: Abdiaziz Carrasquillo M.D. 04/24/2022 7:44 AM Abdomen/Pelvis CT 04/24/22 11:22 CT OF THE ABDOMEN AND PELVIS WITH CONTRAST CLINICAL HISTORY: Epigastric/RUQ pain, nausea. COMPARISON STUDY: Right upper quadrant ultrasound performed earlier today. TECHNIQUE: Following IV administration of 90 mL of Optiray, axial images of the abdomen and pelvis were obtained from the lung bases to the proximal femurs. Images were reviewed in the axial, sagittal, and coronal planes. IV contrast was administered without complication. Automated exposure control was utilized for the study. A dose lowering technique was utilized adhering to the principles of ALARA. CT DOSE: 1732.60 mGy.cm FINDINGS: No pneumatosis, free air or portal gas is present. No hepatic lesions are present. There is possible hepatic steatosis. There is no biliary or pancreatic ductal dilatation. Moderate pericholecystic stranding is noted with trace associated fluid. Gallstones were noted on ultrasound performed earlier today. Gallbladder is slightly distended. Water attenuation bilateral renal lesions reflect cysts. There are are several right renal calculi which measure up to 5 mm. No ureteral calculi are present. There is no hydronephrosis. Colonic diverticulosis is present without evidence for acute diverticulitis. There is no evidence for a bowel obstruction. Appendix is not identified. There is no lymphadenopathy. There are no acute fractures or suspicious lesions within visualized skeletal structures. IMPRESSION: 1. Findings consistent with acute cholecystitis. 2. Colonic diverticulosis. No evidence for acute diverticulitis. 3. Right-sided nephrolithiasis. ACT 112: Negative or not required by law. Electronically signed by: Angel Colón M.D. 04/24/2022 1:09 PM Endo Retro Cholangiopancreatogram 04/26/22 00:00 FL ERCP biliary ductal CLINICAL HISTORY: ADD ON ERCP IN OR TECHNIQUE: 8 views were obtained with the C-arm in the OR with the above procedure. Total fluoroscopy time was 67.0 seconds. Radiation dose was 64.29 mGy. Comparison: None available at the time of this dictation. FINDINGS/IMPRESSION: Intraoperative images were obtained of ERCP. Please correlate with intraoperative fluoroscopy and operative report. ACT 112: Negative or not required by law. Electronically signed by: Jesus Kumar M.D. 04/26/2022 5:05 PM (4) Cholelithiasis Biliary obstruction: without biliary obstruction Cholecystitis acuity: acute Cholecystitis presence: with cholecystitis Cholelithiasis location: gallbladder Qualified Code(s): K80.00 - Calculus of gallbladder with acute cholecystitis without obstruction
[2022-04-28] MEDS: METOPROLOL TARTRATE 25 MG TAB PO SCH (20:50)
--- NOTE | 2022-04-28 22:32 | Electrocardiogram Report ---
Test Reason : Blood Pressure : / mmHG Vent. Rate : 131 BPM Atrial Rate : 136 BPM P-R Int : 000 ms QRS Dur : 088 ms QT Int : 312 ms P-R-T Axes : 000 005 008 degrees QTc Int : 460 ms Atrial fibrillation with rapid ventricular response Low voltage QRS Abnormal ECG When compared with ECG of 24-APR-2022 06:14, Atrial fibrillation has replaced Sinus rhythm Confirmed by Damian Rollins ([id number]) on 04/28/2022 10:32:42 PM Referred By: REFERRED SELF Confirmed By:Humberto Rollins
--- NOTE | 2022-04-28 22:49 | Electrocardiogram Report ---
Test Reason : Blood Pressure : / mmHG Vent. Rate : 106 BPM Atrial Rate : 163 BPM P-R Int : 000 ms QRS Dur : 086 ms QT Int : 338 ms P-R-T Axes : 000 016 028 degrees QTc Int : 448 ms Atrial fibrillation with rapid ventricular response with premature ventricular or aberrantly conducte d complexes Low voltage QRS Abnormal ECG When compared with ECG of 28-APR-2022 00:25, (unconfirmed) No significant change was found Confirmed by Damian Rollins ([id number]) on 04/28/2022 10:49:04 PM Referred By: REFERRED SELF Confirmed By:Humberto Rollins
[2022-04-29] MEDS: metroNIDAZOLE 500 MG/100 ML BAG IV SCH ×2 (01:46→11:09)
--- NOTE | 2022-04-29 05:14 | Surgery Progress Note ---
Date of Service April 29, 2022 Assessment & Plan (1) Cholelithiasis: Plan: Status post laparoscopic cholecystectomy on 04/24/2022 (postop day #5) and status post ERCP on 04/26/2022 (postop day #3) Continue analgesics Continue antiemetics Keep MACHELLE drain in place which he will be discharged home with. Patient will have this removed in the office with [facility] surgery Continue antibiotics in form of Cipro and Flagyl which patient will be discharged home with Patient will require repeat ERCP in approximately 2 months for stent removal Doing well from surgical standpoint but patient developed atrial fibrillation postoperatively. Patient is tentatively scheduled for cardioversion later today Check a.m. labs when available Admission and Anticipated Discharge Date Admission Date: April 25, 2022 Supervising Physician Co-Signing Physician Notes As per Chaparro Parrish physician fire assistant Patient resting comfortably no abdominal complaints The abdomen is completely benign subhepatic drain serous slightly sanguinous nonbilious drainage Patient is tolerating a diet His only concern at this time is that he is going to possibly have a cardioversion today Subjective Patient is resting comfortably in bed. He denies any significant abdominal pain and notes that he does not have any pain exacerbated by solid food which she is tolerating. He notes he is passing flatus but has not had a bowel movement since surgery. He denies any nausea or vomiting Physical Exam Gastrointestinal (Abdomen): Abdomen is rotund but soft. Bowel sounds are present. There is minimal pain near surgical incisions. His incisions are clean, dry, and intact. He has a MACHELLE drain in place which is drained approximately 40 cc of fluid over the last shift. It is draining serosanguineous fluid. Results & Data ([facility]) Vital Signs (Past 12 Hours) Vital Signs Temp Pulse Pulse Pulse Resp BP Pulse Ox 04/29/22 03:10 36.8 C 99 H 18 130/91 96 04/28/22 22:05 86 04/28/22 20:30 04/28/22 22:55 37.0 C 98 H 18 143/82 H 97 04/28/22 20:17 36.6 C 121 H 18 160/121 H 96 O2 Del Method O2 Flow Rate 04/29/22 03:10 Nasal Cannula 04/28/22 22:05 04/28/22 20:30 Nasal Cannula 2 04/28/22 22:55 Nasal Cannula 2 04/28/22 20:17 Nasal Cannula 2 PG Care Time/CCT Total # of Minutes Spent Total Time Spent with Patient: Total time spent is greater than 50% in coordination of care (as documented) at patient's floor/unit and/or counseling patient: Coding Level of Care Code None Diagnoses Cholelithiasis K80.00 Biliary obstruction: without biliary obstruction Cholecystitis acuity: acute Cholecystitis presence: with cholecystitis Cholelithiasis location: gallbladder (1) Cholelithiasis Biliary obstruction: without biliary obstruction Cholecystitis acuity: acute Cholecystitis presence: with cholecystitis Cholelithiasis location: gallbladder Qualified Code(s): K80.00 - Calculus of gallbladder with acute cholecystitis without obstruction
[2022-04-29] MEDS: ACETAMINOPHEN 500 MG TAB PO SCH ×2 (05:41→12:37)
[2022-04-29 06:25] LABS: Hematocrit (blood only) 46.4 % (42.0-52.0); Hemoglobin 15.2 g/dl (14.0-18.0); Mean Corpuscular Hemoglobin 28.9 pg (25.0-34.0); Mean Corpuscular Hgb Conc 32.8 g/dL (32.0-36.0); Mean Corpuscular Volume 88.2 fL (80.0-100.0); Mean Platelet Volume 9.7 fL (9.4-12.4); Platelet Count 307 K/uL (130-400); RDW Standard Deviation 44.8 fL (36.4-46.3); Red Blood Count 5.26 M/uL (4.70-6.10); White Blood Count 10.64 K/ul (4.8-10.8)
[2022-04-29 06:39] LABS: BUN Creatinine Ratio 17.5 (10-20); Creatinine Clr Calc Pharmacy 72.1 ml/min; Est GFR (Non-African American) 62.1 ml/min; Magnesium 1.8 mg/dl (1.7-2.4)
[2022-04-29] MEDS ORDERED: lisinopril 20 MG TAB PO SCH (09:00)
[2022-04-29] MEDS ORDERED: hydroCHLOROthiazide 25 MG TAB PO SCH (09:00)
[2022-04-29] MEDS: METOPROLOL TARTRATE 25 MG TAB PO SCH (09:10)
[2022-04-29] MEDS: APIXABAN 5 MG TABLET PO SCH (09:10)
[2022-04-29] MEDS: INSULIN ASPART PER UNIT SC SCH ×2 (09:10→12:23)
[2022-04-29] MEDS: FAMOTIDINE 40 MG TABLET PO SCH (09:10)
[2022-04-29] MEDS: PANTOprazole 40 MG TAB PO SCH (09:10)
[2022-04-29] MEDS: CIPROFLOXACIN / D5W 400 MG/200 ML BAG IV SCH (09:11)
[2022-04-29] MEDS ORDERED: POLYETHYLENE (MIRALAX) 17 GM PACK PO SCH (11:45)
--- NOTE | 2022-04-29 13:45 | Cardiology Progress Note ---
Date of Service April 29, 2022 Assessment & Plan (1) Atrial fibrillation with RVR: (2) Elevated troponin: (3) Essential hypertension: Plan A-fib is now rate controlled and tolerating Eliquis without issue Patient anxious for discharge and will prefer to return as an outpatient later this week for cardioversion Ok to d/c to home on current doses of Eliquis and metoprolol my office will call to arrange outpatient cardioversion this week Admission and Anticipated Discharge Date Admission Date: April 25, 2022 Subjective Patient seen and examined. Chart reviewed. Telemetry reviewed. Tolerating medication changes well. Anxious for discharge. Review of Systems Review of Systems: All systems reviewed & are unremarkable except as noted in HPI & below Physical Exam Physical Exam: General: Awake, alert and oriented x 3. No acute distress. HEENT: Normocephalic, atraumatic. Pupils equal, round and reactive to light and accommodation. Extraocular muscles are intact. Anicteric sclera. Moist mucous membranes. Neck: No JVD. No bruit. Cardiovascular: irregularly irregular, unable to appreciate murmur, rub or gallop. Pulmonary: Clear to auscultation bilaterally. No rales, rhonchi, or wheezing. Abdomen: Bowel sounds x 4, soft. No rebound, guarding or tenderness. No organomegaly. Extremities: No clubbing, cyanosis or edema. +2 pedal pulses bilaterally. Skin: Warm and dry. Results & Data ([facility]) Vital Signs (Past 12 Hours) Vital Signs Temp Pulse Pulse Pulse Resp BP Pulse Ox 04/29/22 11:36 36.5 C 96 H 20 137/93 92 04/29/22 08:15 101 H 04/29/22 07:18 36.6 C 120 H 20 148/94 H 92 04/29/22 03:10 36.8 C 99 H 18 130/91 96 O2 Del Method 04/29/22 11:36 Room Air 04/29/22 08:15 04/29/22 07:18 Room Air 04/29/22 03:10 Nasal Cannula
--- NOTE | 2022-04-29 14:03 | Hospitalist Progress Note ---
Date of Service April 29, 2022 Assessment & Plan (1) Atrial fibrillation with RVR: Plan: Converted to A fib with RVR overnight with HR up to 130s. Transferred to PCU, started on IV heparin for anticoagulation and PRN IV lopressor added HR now low 100s, remains asymptomatic Evaluated by cardiology today with recommendation to increase metoprolol to tartrate to 75 mg twice daily and transition heparin to Eliquis 5 mg twice daily Make NPO at midnight as inpatient versus outpatient cardioversion being considered Will give additional K with goal >4, daily BMP Heart rate is around 100 with beta-poppy Has been getting Eliquis Appreciate cardiology input and recommendation for cardioversion as an outpatient He will be discharged home this afternoon Has been ambulating without any difficulties (2) Elevated troponin: Plan: HS troponin elevated 379 --> 281 --> 194.1 in setting of A fib with RVR EKG without ischemic changes Echocardiogram with small hypertrophied left ventricle with hyperdynamic LV function and no wall motion abnormalities (3) Acute cholecystitis: (4) Cholelithiasis: Plan: POD #4 s/p laparoscopic cholecystectomy, POD #2 s/p ERCP with placement of a plastic biliary stent into the common bile duct Post op pain, cont Tylenol, added Tramadol Additional narcotics as needed Cont wound and drain management per surgery Cont cipro/flagyl course (4 days remaining) Tolerating diet without issue Cleared by the surgery to be discharged (5) Type 2 diabetes mellitus: Plan: A1C is 6.7 reflecting good control. Cont holding metformin and giving novolog with correction factor and carb coverage With light coverage needed, will hold on glargine at this time (6) Essential hypertension: Plan: Chronic, controlled. Per cardiology, increasing lisinopril to 20mg daily. Plan to resume HCTZ 12.5 tomorrow (7) Nephrolithiasis: Plan: Present on imaging with no evidence of ureteral calculi DVT proph: IV heparin, transitioning to Eliquis DNR/DNI Dispo-PCU Admission and Anticipated Discharge Date Admission Date: April 25, 2022 Subjective Patient seen and examined in . Went into asymptomatic atrial fibrillation with RVR overnight and was transferred to PCU. Per telemetry review, heart rate in the 120s to 130s overnight and improved to 110s this morning. Patient denies any lightheadedness, chest pain, palpitations. Troponin was elevated but no acute EKG changes. Continued twice daily beta-poppy which is a home medication, as needed IV Lopressor added and started on IV heparin for anticoagulation. Patient continues to improve from a postoperative standpoint passing flatus but no bowel movement yet. Tolerating normal diet. Denies any fever, chills, headache, shortness of breath, nausea, vomiting, abdominal pain, dysuria. 04/29/2022 The patient was seen and examined in telemetry unit He has been patiently waiting for the cardioversion Denies any chest pain, palpitation or shortness of breath Abdomen is mildly distended and bowel has not moved he is cleared by the surgery to be discharged Review of Systems Review of Systems: All systems reviewed and are unremarkable except as noted below Physical Exam Physical Exam: Sitting at the edge of the bed without any acute distress Constitutional: well developed, well nourished, + ill appearing and + obese Eyes: PERRL, conjunctivae normal, anicteric sclerae ENMT: external ear and nose normal, oropharynx normal Neck: trachea midline, no thyromegaly Respiratory: no respiratory distress Auscultation: lungs clear to auscultation bilaterally Cardiovascular: Rate/Rhythm: + tachycardic and + irregularly irregular Heart Sounds: normal S1 and normal S2; no murmur Extremities: + edema (Trace edema bilaterally) Gastrointestinal (Abdomen): Inspection/Auscultation: + abdomen distended and normal bowel sounds Percussion/Palpation: + abdomen tender (Tender all over without any rebound) and abdomen soft Musculoskeletal: No acute arthritis involving any joint Neurologic: normal touch/pain/proprioception and moves all extremities; no focal motor deficits Psychiatric: A+Ox3, euthymic affect Lymphatic: no cervical or axillary lymphadenopathy Results & Data Results & Data ([facility]) Vital Signs (Past 12 Hours) Vital Signs Temp Pulse Pulse Pulse Resp BP Pulse Ox 04/29/22 13:49 36.5 C 99 H 96 H 20 137/93 92 04/29/22 11:36 36.5 C 96 H 20 137/93 92 04/29/22 08:15 101 H 04/29/22 07:18 36.6 C 120 H 20 148/94 H 92 04/29/22 03:10 36.8 C 99 H 18 130/91 96 O2 Del Method 04/29/22 13:49 04/29/22 11:36 Room Air 04/29/22 08:15 04/29/22 07:18 Room Air 04/29/22 03:10 Nasal Cannula Laboratory Results Short CBC 04/29/22 Range/Units 05:50 WBC 10.64 (4.8-10.8) K/ul Hgb 15.2 (14.0-18.0) g/dl Hct 46.4 (42.0-52.0) % Plt Count 307 (130-400) K/uL BMP 04/29/22 05:50 Sodium 142 Potassium 4.0 Chloride 100 Carbon Dioxide 37 H BUN 20 Creatinine 1.14 Glucose 115 H Calcium 9.0 Medications Administered Current Inpatient Medications Acetaminophen (Acetaminophen 500 Mg Tab) 1,000 mg PO Q8H [facility] Stop: 05/25/22 20:59 Last Admin: 04/29/22 12:37 Dose: 1,000 mg Apixaban (Apixaban 5 Mg Tablet) 5 mg PO BID RHIANNA Stop: 05/28/22 12:59 Last Admin: 04/29/22 09:10 Dose: 5 mg Calcium Carbonate (Calcium Carbonate 500 Mg Chewable Tab) 500 mg PO Q6H PRN PRN Reason: Indigestion Stop: 05/27/22 15:41 Dextrose (Dextrose 50% 50 Ml Syringe) 25 - 50 ml IV UD PRN; Protocol PRN Reason: Hypoglycemia Protocol Stop: 05/24/22 15:14 Diphenhydramine HCl (Diphenhydramine Capsule 25 Mg Cap) 25 mg PO Q4H PRN PRN Reason: hives, itching or insomnia Stop: 05/24/22 21:58 Last Admin: 04/28/22 22:53 Dose: 25 mg Famotidine (Famotidine 40 Mg Tablet) 40 mg PO QAM RHIANNA Stop: 05/25/22 08:59 Last Admin: 04/29/22 09:10 Dose: 40 mg Glucagon (Glucagon For Inj 1 Mg Vial) 1 mg SQ UD PRN; Protocol PRN Reason: Hypoglycemia Protocol Stop: 05/24/22 15:14 Glucose (Glucose 40% Gel 15 Gm Tube) 15 - 30 gm PO UD PRN; Protocol PRN Reason: Hypoglycemia Protocol Stop: 05/24/22 15:14 Glucose (Glucose 10 Tab/Tube) 4 - 8 tab PO UD PRN; Protocol PRN Reason: Hypoglycemia Treatment Stop: 05/24/22 15:14 Hydrochlorothiazide (Hydrochlorothiazide 25 Mg Tab) 12.5 mg PO QAM [facility] Stop: 05/29/22 08:59 Last Admin: 04/29/22 09:10 Dose: 12.5 mg Metronidazole (Flagyl) 500 mg in 100 mls @ 100 mls/hr IV Q8H [facility] Stop: 05/04/22 15:29 Last Infusion: 04/29/22 12:09 Dose: Infused Promethazine HCl 12.5 mg/ (Sodium Chloride) 50.5 mls @ 204 mls/hr IV Q6H PRN PRN Reason: Nausea And Vomiting Stop: 05/24/22 21:58 Ciprofloxacin (Cipro / D5w) 400 mg in 200 mls @ 100 mls/hr IV Q12H [facility]; Protocol Stop: 05/04/22 19:59 Last Infusion: 04/29/22 11:20 Dose: Infused Insulin Aspart (Insulin Aspart Per Unit) 0 units SC ACHS [facility] Stop: 05/24/22 16:29 Last Admin: 04/29/22 12:23 Dose: 3 units Lisinopril (Lisinopril 20 Mg Tab) 20 mg PO QAM [facility] Stop: 05/29/22 08:59 Last Admin: 04/29/22 09:10 Dose: 20 mg Metoprolol Tartrate (Metoprolol Tartrate 25 Mg Tab) 75 mg PO BID [facility] Stop: 05/28/22 20:59 Last Admin: 04/29/22 09:10 Dose: 75 mg Miscellaneous (Carbohydrates For Hypoglycemia ) 15 - 30 gm PO UD PRN PRN Reason: Hypoglycemia Protocol Stop: 05/24/22 15:14 Ondansetron HCl (Ondansetron Inj 2 Mg/Ml 2 Ml Vial) 4 mg IV Q4H PRN PRN Reason: Nausea And Vomiting Stop: 05/24/22 21:58 Last Admin: 04/25/22 23:42 Dose: 4 mg Pantoprazole Sodium (Pantoprazole 40 Mg Tab) 40 mg PO BID [facility] Stop: 05/24/22 12:44 Last Admin: 04/29/22 09:10 Dose: 40 mg Polyethylene Glycol (Polyethylene (Miralax) 17 Gm Pack) 17 gm PO DAILY [facility] Stop: 05/29/22 11:44 Last Admin: 04/29/22 12:37 Dose: 17 gm Tramadol HCl (Tramadol Hcl 50 Mg Tablet) 50 mg PO Q6H PRN PRN Reason: severe pain (7-10) Stop: 05/25/22 13:18 (4) Cholelithiasis Biliary obstruction: without biliary obstruction Cholecystitis acuity: acute Cholecystitis presence: with cholecystitis Cholelithiasis location: gallbladder Qualified Code(s): K80.00 - Calculus of gallbladder with acute cholecystitis without obstruction
--- NOTE | 2022-04-29 16:56 | Discharge Summary ---
Date of Service April 29, 2022 Admission HPI Per Admitting Provider Chief Complaint: Upper abdominal pain since last night Primary Care Provider: Sarath Hidalgo PA-C This is a 76 y/o male with a PMH of DM2 with associated neuropathy, HTN, nephrolithiasis, and prior prostate cancer who presented to the ED with the sudden onset on upper abdominal pain last evening. Pt reports that after watching the Super Bowl last night, he was walking down the butcher and developed the sudden onset of LUQ pain. Describes as "like something going to blow up" - constant, has not gone away completely since it started. Initially it was in the LUQ but now radiating to RUQ, not to back. Associated nausea, dry heaves but no vomiting. Denies similar pain previously. In the ED, he was given famotidine, which did not help, and Carafate, which seemed to help minimally but transiently. Denies fevers, chills, diarrhea, change in bowel habits, melena or hematochezia. Has baseline PERALTA but no worse than usual. His outpatient records list a history of a duodenal ulcer, but pt does not recall this. He does report a history of nephrolithiasis. He is on aspirin 162 mg daily although denies cardiac history. Admission Exam Per Admitting Provider Constitutional: well developed and well nourished; no acute distress Eyes: + anicteric sclerae Neck: trachea midline Respiratory: no respiratory distress and no labored breathing Auscultation: lungs clear to auscultation bilaterally; no rales, no rhonchi and no wheezes Cardiovascular: Rate/Rhythm: regular rate and regular rhythm Heart Sounds: no murmur Vessels: posterior tibial pulses present and radial pulses present Extremities: + pedal edema (trace bilateral) Gastrointestinal (Abdomen): Inspection/Auscultation: normal bowel sounds; abdomen not distended Percussion/Palpation: + abdomen tender (epigastric > RUQ but no guarding or rebound) and abdomen soft No CVA tenderness Musculoskeletal: Head/Neck/Chest: normocephalic, head atraumatic and neck supple Skin: no jaundice Neurologic: moves all extremities; no focal motor deficits and not confused Psychiatric: A+Ox3, euthymic affect Principal Diagnosis Acute cholecystitis status post cholecystectomy, 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, A-fib with RVR, type 2 diabetes Discharge Exam Physical Exam: Sitting at the edge of the bed without any acute distress Constitutional: well developed, well nourished, + ill appearing and + obese Eyes: PERRL, conjunctivae normal, anicteric sclerae ENMT: external ear and nose normal, oropharynx normal Neck: trachea midline, no thyromegaly Respiratory: no respiratory distress Auscultation: lungs clear to auscultation bilaterally Cardiovascular: Rate/Rhythm: + tachycardic and + irregularly irregular Heart Sounds: normal S1 and normal S2; no murmur Extremities: + edema (Trace edema bilaterally) Gastrointestinal (Abdomen): Inspection/Auscultation: + abdomen distended and normal bowel sounds Percussion/Palpation: + abdomen tender (Tender all over without any rebound) and abdomen soft Musculoskeletal: No acute arthritis involving any joint Neurologic: normal touch/pain/proprioception and moves all extremities; no focal motor deficits Psychiatric: A+Ox3, euthymic affect Lymphatic: no cervical or axillary lymphadenopathy Discharge Data Allergies Allergy/AdvReac Type Severity Reaction Status Date / Time unknown anesthetic agent AdvReac Nausea Uncoded 04/24/22 12:49 Consultations 04/24/22 10:50 ED Decision to Admit Stat 04/24/22 13:45 Consult Gastroenterology Routine Consult General Surgery Routine 04/28/22 08:00 Consult Cardiology Routine Procedures Performed Operation Date: 04/24/22 12:00 Actual Procedures p Laparoscopic Cholecystectomy(Not Applicable) - James Jamison MD Operation Date: 04/26/22 07:00 Actual Procedures p Endoscopic Retrograde Cholangiopancreato - Chuy Winchester MD Ordered Studies 04/24/22 06:21 US gallbladder Stat 04/24/22 11:22 CT Abd and Pelvis [CT abd pelvis IV con only] Stat 04/26/22 [place] ERCP biliary ductal Routine Hospital Course (1) Atrial fibrillation with RVR: (1) Atrial fibrillation with RVR: Plan: Converted to A fib with RVR overnight with HR up to 130s. Transferred to PCU, started on IV heparin for anticoagulation and PRN IV lopressor added HR now low 100s, remains asymptomatic Evaluated by cardiology today with recommendation to increase metoprolol to tartrate to 75 mg twice daily and transition heparin to Eliquis 5 mg twice daily Make NPO at midnight as inpatient versus outpatient cardioversion being considered Will give additional K with goal >4, daily BMP Heart rate is around 100 with beta-poppy Has been getting Eliquis Appreciate cardiology input and recommendation for cardioversion as an outpatient He will be discharged home this afternoon Has been ambulating without any difficulties (2) Elevated troponin: Plan: HS troponin elevated 379 --> 281 --> 194.1 in setting of A fib with RVR EKG without ischemic changes Echocardiogram with small hypertrophied left ventricle with hyperdynamic LV function and no wall motion abnormalities (3) Acute cholecystitis: (4) Cholelithiasis: Plan: POD #4 s/p laparoscopic cholecystectomy, POD #2 s/p ERCP with placement of a plastic biliary stent into the common bile duct Post op pain, cont Tylenol, added Tramadol Additional narcotics as needed Cont wound and drain management per surgery Cont cipro/flagyl course (4 days remaining) Tolerating diet without issue Cleared by the surgery to be discharged (5) Type 2 diabetes mellitus: Plan: A1C is 6.7 reflecting good control. Cont holding metformin and giving novolog with correction factor and carb coverage With light coverage needed, will hold on glargine at this time (6) Essential hypertension: Plan: Chronic, controlled. Per cardiology, increasing lisinopril to 20mg daily. Plan to resume HCTZ 12.5 tomorrow (7) Nephrolithiasis: Plan: Present on imaging with no evidence of ureteral calculi DVT proph: IV heparin, transitioning to Eliquis DNR/DNI Dispo-PCU Admission and Anticipated Discharge Date Admission Date: April 25, 2022 (2) Elevated troponin: (3) Acute cholecystitis: (4) Cholelithiasis: (5) Type 2 diabetes mellitus: (6) Essential hypertension: (7) Nephrolithiasis: Total Time Total Time Spent Total Time Spent (In Minutes): 35 mnutes Discharge Plan Discharge Items Patient Disposition: Home - Self-Care Reason For Visit: EPIGASTRIC PAIN Discharge Diagnosis: Acute cholecystitis status post cholecystectomy, 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, A-fib with RVR, type 2 diabetes Condition on Discharge: Fair Activity: As commented below Activity Comment: Take it easy for the next few weeks Non-emergency contact: Primary Care Provider Call non-emergency contact if: you have any medication questions and your symptoms worsen Follow-up/Referrals: Marjorie Jack PA-C [Physician Telecommunicator Supervisor] - 02/21/23 12:30 pm Sarath Hidalgo PA-C [Primary Care Provider] - 05/03/22 3:30 pm Diet: Carb Consistent or DM2 and Low Fat [place]elin Attending Provider Instructions: Please take precautions to avoid fall Take your medications as advised Finish the course of antibiotic Take your Eliquis and metoprolol regularly Your metoprolol has been increased to 75 mg 2 times daily(50 mg +25 mg) Your lisinopril has been increased to 20 mg and hydrochlorothiazide remains to 12.5 mg a day Keep appointments with your healthcare providers Yaquelin Cartridge Loader Provider Instructions: Post-Surgical ~Discharge Instructions Activity Recommendations: - lifting limitation: (20 pounds for 2-3 weeks), - exercise/sex/sports limit: (nonstrenuous for 2 weeks), - driving or machine use limit: (none for 1 week or until pain free and no longer taking narcotic pain medication), - Shower/bathe limit: (may shower ) Diet: - Low fat, diabetic diet SPECIAL CARE INSTRUCTIONS: - May shower. Let water run over area and pat dry. Sponge bath around drain site - Surgical glue will fall off on its own, do not pick at it - Keep record of drain output and color and bring record with you to surgery office. Surgical drain will be remove in office. Change dressing around drain site daily and as needed to keep clean and dry. - Call the surgeon's office with any questions or concerns - - (ex. temperature higher than 101 degrees F, excessive bleeding or pain). MEDICATIONS: - Resume previous medications unless instructed otherwise by your surgeon. - Take oral antibiotics as prescribed for 5 days -Ciprofloxacin 500 mg twice a day - Metronidazole 500 mg three times a day - May take extra strength Tylenol as needed for mild to moderate pain. -650 mg every 6 hours as needed FOLLOW UP VISIT: - You are scheduled for follow-up in surgery office on Sunday05/02/22 at 12:30 pm with Marjorie Jack PA-C Office number Pending Studies at Discharge: No Stand-Alone Forms: [employer], Smoking Cessation Medications and DC Order Prescriptions: New ciprofloxacin HCl 500 mg tablet 500 mg PO BID Qty: 10 0RF metronidazole 500 mg tablet 500 mg PO TID Qty: 15 0RF Eliquis 5 mg Tablet 5 mg PO BID Qty: 60 0RF lisinopril 20 mg Tablet 20 mg PO QAM 30 Days Qty: 30 0RF pantoprazole 40 mg Tablet,Delayed Release (Dr/Ec) 40 mg PO BID 30 Days Qty: 60 0RF hydrochlorothiazide 25 mg Tablet 12.5 mg PO QAM 30 Days Qty: 15 0RF metoprolol tartrate 25 mg Tablet 25 mg PO BID 30 Days Qty: 60 0RF Continued metoprolol tartrate 50 mg tablet 50 mg PO BID metformin 500 mg tablet extended release 24 hr 500 mg PO DAILY Discontinued lisinopril-hydrochlorothiazide 10-12.5 mg tablet 1 tab PO DAILY aspirin 81 mg Tablet,Delayed Release (Dr/Ec) 162 mg PO DAILY Discharge Orders: Discharge Order (Routine); Ordered 04/29/22 Ordered By: Adela Vann/Other Patient Handouts: Managing Type 2 Diabetes, Special Foot Care for Diabetes Admission Data Admit Date/Time: 04/25/22 13:08 Attending Provider: Adela Shelley Admit Provider: Ellie Melgar I. Primary Care Provider: Sarath Hidalgo Other Providers: Barbara Gaston ; Cornelia Blanca ; Ellie Melgar I. ; Soraida Askew ; James Jamison ; Robin Keller ; Bear Vale ; Estephania Her ; Jeronimo Quinteros ; LupeFito moyer ; Luciano Elkins ; Grace Mccord ; Pita Boone ; Ghada Finnegan ; Brian Swartz Other Interventions: Discharge Summary Assessment (RN) Last Done: 04/29/22 13:49
== END 2022-04-29 14:45 | disposition home or self-care (01) | DRG 418 ==
LOC: ED 06:04 → 2N 06:04 → SUATTDRO 11:55 → 2N 15:07 → 2E 21:55 → SUATTDRO 04-25 13:08 → 3N 04-25 22:10 → 2E 04-28 01:40
DX: Z79.899 Other long term (current) drug therapy; N20.0 Calculus of kidney; R77.8 Other specified abnormalities of plasma proteins; Z87.19 Personal history of other diseases of the digestive system; Z87.891 Personal history of nicotine dependence; E11.9 Type 2 diabetes mellitus without complications; I10 Essential (primary) hypertension; Z85.46 Personal history of malignant neoplasm of prostate; Z79.84 Long term (current) use of oral hypoglycemic drugs; Z79.82 Long term (current) use of aspirin; K56.7 Ileus, unspecified; I48.91 Unspecified atrial fibrillation; Z87.442 Personal history of urinary calculi; K80.01 Calculus of gallbladder with acute cholecystitis with obstruction; R39.198 Other difficulties with micturition; Z90.79 Acquired absence of other genital organ(s); Z66 Do not resuscitate